=== PATIENT | male | born 1955 | race Caucasian/White ===

== ENCOUNTER 2017-01-11 12:26 | Emergency (ER) | payer BC ==
--- NOTE | 2017-01-11 14:02 | ER Document Report ---
Doctor's Note Notes: 01/11/17 14:01 I have greeted and performed a rapid initial assessment of this patient. A comprehensive ED assessment and evaluation of the patient, analysis of test results and completion of the medical decision making process will be conducted by additional ED providers. 61-year-old male presents with two-week duration of left-sided deficits. Patient admits nausea dizziness lightheadedness. Patient notes his gait has been off balance. Patient denies being on any blood thinners denies a history of strokes Patient has a history of high blood pressure but states he forgets to take his medications often Neurological exam: Left facial deficit left upper and lower extremity deficit difficulty with gait dragging left foot
[2017-01-11 14:10] LABS: ABSOLUTE LYMPHOCYTES (AUTO) 2.2 10^3/uL (0.5-4.7); ABSOLUTE MONOCYTES (AUTO) 0.8 10^3/uL (0.1-1.4); ABSOLUTE NEUT (AUTO) 6.2 10^3/uL (1.7-8.2); BASOPHILS % (AUTO) 0.4 % (0-2); EOSINOPHILS % (AUTO) 0.2 % (0-6); HEMATOCRIT 48.8 % (37.9-51.0); HEMOGLOBIN 16.5 g/dL (13.5-17.0); HGB HCT DIFFERENCE 0.7; MEAN CORPUSCULAR HEMOGLOBIN 31.5 pg (27.0-33.4); MEAN CORPUSCULAR HGB CONC 33.7 g/dL (32.0-36.0); MEAN CORPUSCULAR VOLUME 94 fl (80-97); MONOCYTES % (AUTO) 8.5 % (3-13); RED BLOOD COUNT 5.22 10^6/uL (4.35-5.55); RED CELL DISTRIBUTION WIDTH 13.7 % (11.5-14.0); SEGMENTED NEUTROPHILS % (AUTO) 66.9 % (42-78); WHITE BLOOD COUNT 9.3 10^3/uL (4.0-10.5)
[2017-01-11 14:35] LABS: ALANINE AMINOTRANSFERASE 35 U/L (21-72); ALBUMIN 4.3 g/dL (3.5-5.0); ALKALINE PHOSPHATASE 53 U/L (38-126); ANION GAP 14 (5-19); ASPARTATE AMINO TRANSFERASE 20 U/L (17-59); BILIRUBIN,DIRECT 0.2 mg/dL (0.0-0.4); BILIRUBIN,TOTAL 0.7 mg/dL (0.2-1.3); BLOOD UREA NITROGEN 17 mg/dL (7-20); CARBON DIOXIDE 28 mmol/L (22-30); CHLORIDE 105 mmol/L (98-107); CREATINE KINASE 75 U/L (55-170); CREATININE RESULT 0.92 mg/dL (0.52-1.25); GLUCOSE 96 mg/dL (75-110); SODIUM 146.5 mmol/L (137-145); TOTAL PROTEIN 6.8 g/dL (6.3-8.2)
[2017-01-11 14:38] LABS: POTASSIUM 4.6 mmol/L (3.6-5.0)
[2017-01-11 14:49] LABS: CREATINE KINASE MB 1.66 ng/mL (<4.55)
[2017-01-11 14:51] LABS: TROPONIN I < 0.012 ng/mL
--- NOTE | 2017-01-11 15:06 | ER Document Report ---
ED General - General Chief Complaint: Nausea Stated Complaint: NAUSEA Mode of Arrival: Ambulatory Information source: Patient Notes: This is a 61-year-old male with a prior medical history of high blood pressure who presents with a several week history of progressive left-sided weakness, dizziness, left facial droop, and imbalance. states that he was seen last month for sciatica and treated with pain medications and muscle relaxers and she states that since starting on these medications, the symptoms have progressed. Patient denies any pain and specifically denies headaches. He has had no fevers or chills. He does endorse daily worsening nausea but no vomiting. No changes in his vision. He does not have a primary care physician and has been noncompliant with his lisinopril. TRAVEL OUTSIDE OF THE [place] IN LAST 30 DAYS: No - Related Data Allergies/Adverse Reactions: Penicillins Allergy (Verified 01/11/17 12:28) Past Medical History - General Information source: Patient - Social History Smoking Status: Current Every Day Smoker Frequency of alcohol use: None Drug Abuse: None Lives with: Family Family History: Reviewed & Not Pertinent Patient has suicidal ideation: No Patient has homicidal ideation: No - Past Medical History Cardiac Medical History: Reports: Hx Hypertension Renal/ Medical History: Denies: Hx Peritoneal Dialysis GI Medical History: Reports: Hx Gastroesophageal Reflux Disease Past Surgical History: Reports: Hx Herniorrhaphy - Immunizations Hx Diphtheria, Pertussis, Tetanus Vaccination: Yes Review of Systems - Review of Systems Notes: REVIEW OF SYSTEMS: CONSTITUTIONAL : Denies fever, chills, or sweats. Denies recent illness. EENT: Denies eye, ear, throat, or mouth pain or symptoms. Denies nasal or sinus congestion. CARDIOVASCULAR: Denies chest pain. RESPIRATORY: Denies cough, cold, or chest congestion. Denies shortness of breath, difficulty breathing, or wheezing. GASTROINTESTINAL: Denies abdominal pain. Nausea as per history of present illness GENITOURINARY: Denies difficulty urinating, painful urination, burning, frequency, or blood in urine. MUSCULOSKELETAL: Denies neck or back pain or joint pain or swelling. SKIN: Denies rash or skin lesions. HEMATOLOGIC : Denies easy bruising or bleeding. LYMPHATIC: Denies swollen, enlarged glands. NEUROLOGICAL: As per history of present illness PSYCHIATRIC: Denies anxiety or stress or depression. ALL OTHER SYSTEMS REVIEWED AND NEGATIVE. Physical Exam - Vital signs Vitals: Temp Pulse Resp BP Pulse Ox 97.5 F 87 18 145/86 H 97 01/11/17 12:30 01/11/17 12:30 01/11/17 12:30 01/11/17 12:30 01/11/17 12:30 - Notes Notes: PHYSICAL EXAMINATION: GENERAL: Pleasant and conversant adult male, appears older than stated age,, thin and in no acute distress. HEAD: Atraumatic, normocephalic. EYES: Pupils equal round and reactive to light, extraocular movements intact, sclera anicteric, conjunctiva are normal. ENT: nares patent, oropharynx clear without exudates. Moist mucous membranes. NECK: Normal range of motion, supple without lymphadenopathy LUNGS: Breath sounds clear to auscultation bilaterally and equal. No wheezes rales or rhonchi. HEART: Regular rate and rhythm without murmurs ABDOMEN: Soft, nontender, normoactive bowel sounds. No guarding, no rebound. No masses appreciated. EXTREMITIES: Normal range of motion, no pitting or edema. No cyanosis. NEUROLOGICAL: Left sided facial droop which is forehead sparing. Motor weakness noted on left upper extremity specifically with forearm extension. Strength is intact to left lower extremity. Pronator drift noted to the left. Finger to nose intact. Gait observed and patient noted to drag his left foot somewhat. PSYCH: Normal mood, normal affect. SKIN: Warm, Dry, normal turgor, no rashes or lesions noted. Course - Re-evaluation Re-evalutation: 01/11/17 18:01 CT reviewed with the large right-sided cerebral mass with mass effect and 6 mm of midline shift. Patient has been given IV Decadron. Patient requires transfer to a higher level of care as we do not have neurology or neurosurgery here. I discussed the case with hospitalist at [facility] who accepts transfer at this time. Long discussion with patient and his family about the CT results and my concern that this mass may be cancerous in nature. They are agreeable with transfer for further workup and treatment. - Vital Signs Vital signs: Temp Pulse Resp BP Pulse Ox 97.5 F 76 16 142/74 H 98 01/11/17 12:30 01/11/17 17:00 01/11/17 17:00 01/11/17 17:00 01/11/17 17:00 - Laboratory Result Diagrams: 01/11/17 13:43 01/11/17 13:43 Laboratory results interpreted by me: 01/11/17 01/11/17 13:43 13:43 Plt Count 142 L Sodium 146.5 H - Diagnostic Test Radiology reviewed: Reports reviewed - Noncon head CT: large heterogenous mass R cerebral hemisphere with mass effect. Rec CT with contrast and followup MRI - EKG Interpretation by Me Additional EKG results interpreted by me: 01/11/17 15:16 EKG at 1355 demonstrates normal sinus rhythm with a rate is 74. QRS is 124. No ST segment elevation or depression. Discharge - Discharge Clinical Impression: Brain mass, Left hemiparesis, Midline shift of brain Condition: Stable Disposition: [facility]
[2017-01-11 17:31] VITALS: BP 142/74
[2017-01-11] MEDS ORDERED: DEXAMETHASONE SOD PHOS INJ 10 MG/1 ML VIAL IV ONE (17:45)
[2017-01-11 18:49] LABS: APPEARANCE,URINE CLEAR; BILIRUBIN,URINE NEGATIVE (NEGATIVE); GLUCOSE, URINE NEGATIVE (NEGATIVE); KETONES,URINE NEGATIVE (NEGATIVE); LEUKOCYTE ESTERASE,URINE NEGATIVE (NEGATIVE); NITRITE,URINE NEGATIVE (NEGATIVE); PROTEIN,URINE NEGATIVE (NEGATIVE); UROBILINOGEN,URINE NEGATIVE mg/dL (<2.0)
[2017-01-11 18:54] LABS: URINE SPECIFIC GRAVITY > 1.060
--- NOTE | 2017-01-12 00:08 | EKG REPORT ---
SEVERITY:- ABNORMAL ECG - SINUS RHYTHM NONSPECIFIC INTRAVENTRICULAR CONDUCTION DELAY INFERIOR INFARCT, OLD : Confirmed by: Letty Saladna 12-Jan-2017 00:08:20
== END 2017-01-11 19:05 | disposition short-term general hospital (02) ==
LOC: ER 12:26
DX: G93.9 Disorder of brain, unspecified (principal); G81.94 Hemiplegia, unspecified affecting left nondominant side; R53.1 Weakness; R42 Dizziness and giddiness; R26.89 Other abnormalities of gait and mobility; R11.0 Nausea; F17.200 Nicotine dependence, unspecified, uncomplicated; I10 Essential (primary) hypertension; Z91.14 Patient's other noncompliance with medication regimen
CPT/HCPCS: 93005; 99285; 96374; 36415; 82553; 82550; 85025; 80053; 81001; 84484; 70450; 70460; 93010; J1100

== ENCOUNTER → 2017-01-30 | Outpatient (CLI) | payer BC | LOC: RAD 19:39 | PROVIDERS: ATTEND Radiology Radiation Oncology | DX: C71.1 Malignant neoplasm of frontal lobe (principal) | CPT/HCPCS: 70553; A9577 ==

== ENCOUNTER → 2017-05-05 | Outpatient (CLI) | payer BC ==
--- NOTE | 2017-05-05 16:59 | RADIOLOGY REPORT (SQ) ---
EXAM DESCRIPTION: VENOUS UNILATERAL LOWER COMPLETED DATE/TIME: 05/05/2017 4:39 pm REASON FOR STUDY: LLE R60.9 M79.662 PAIN IN LEFT LOWER LEG M79.89 OTHER SPECIFIED SOFT TISSUE DISO RDERS COMPARISON: None. TECHNIQUE: Dynamic and static vegas scale and color images acquired of the left leg venous system. Se lected spectral images acquired with additional compression and augmentation maneuvers. The contralat eral common femoral vein and saphenofemoral junction were also imaged. Images stored on PACS. LIMITATIONS: None. FINDINGS: COMMON FEMORAL: Normal phasicity, compression and augmentation. No visualized echogenic ma terial on vegas scale. No defects on color images. FEMORAL: Normal compression and augmentation. No visualized echogenic material on vegas scale. No defe cts on color images. POPLITEAL: Thrombus present. CALF VESSELS: Thrombus in the peroneal veins and gastrocnemius vein. GSV and SSV: Normal compression, augmentation. No visualized echogenic material on vegas scale. No def ects on color images. ANY DEEP VENOUS INSUFFICIENCY: Not evaluated. ANY EVIDENCE OF POPLITEAL CYST: No. OTHER: No other significant finding. CONTRALATERAL COMMON FEMORAL VEIN AND SAPHENOFEMORAL JUNCTION: Normal phasicity, compression and augmentation. No visualized echogenic material on vegas scale. No de fects on color images. IMPRESSION: THROMBUS IN THE POPLITEAL VEIN AND CALF VEINS. COMMENT: Preliminary report was called by the technologist to the referring clinician's office at t he time of patient visit. TECHNICAL DOCUMENTATION: JOB ID: [id number] [employer]- All Rights Reserved
== END ==
LOC: SP 15:39
PROVIDERS: ATTEND Internal Medicine Medical Oncology
DX: M79.662 Pain in left lower leg (principal); M79.89 Other specified soft tissue disorders; I82.432 Acute embolism and thrombosis of left popliteal vein
CPT/HCPCS: 93971

== ENCOUNTER 2017-05-27 03:04 | Inpatient (IN) | payer BC ==
[2017-05-27] MEDS ORDERED: NORMAL SALINE 1000 ML 1,000 ML IV ONE ×4 (03:48→08:06)
[2017-05-27 04:05] LABS: APPEARANCE,URINE CLOUDY; BILIRUBIN,URINE NEGATIVE (NEGATIVE); GLUCOSE, URINE NEGATIVE (NEGATIVE); KETONES,URINE NEGATIVE (NEGATIVE); LEUKOCYTE ESTERASE,URINE MODERATE (NEGATIVE); NITRITE,URINE NEGATIVE (NEGATIVE); PROTEIN,URINE 100 mg/dL (NEGATIVE); URINE SPECIFIC GRAVITY 1.021
--- NOTE | 2017-05-27 04:19 | RADIOLOGY REPORT (SQ) ---
EXAM DESCRIPTION: CHEST SINGLE VIEW COMPLETED DATE/TIME: 05/27/2017 4:05 am REASON FOR STUDY: difficulty breathing COMPARISON: 12/19/2015. EXAM PARAMETERS: NUMBER OF VIEWS: One view. TECHNIQUE: Single frontal radiographic view of the chest acquired. RADIATION DOSE: NA LIMITATIONS: None. FINDINGS: LUNGS AND PLEURA: Prominent interstitium, chronic. MEDIASTINUM AND HILAR STRUCTURES: No masses. Contour normal. HEART AND VASCULAR STRUCTURES: Heart normal in size. Normal vasculature. BONES: No acute findings. HARDWARE: None in the chest. OTHER: No other significant finding. IMPRESSION: No acute cardiopulmonary findings. TECHNICAL DOCUMENTATION: JOB ID: [id number]
[2017-05-27 04:41] LABS: HEMATOCRIT 45.6 % (37.9-51.0); HEMOGLOBIN 15.4 g/dL (13.5-17.0); HGB HCT DIFFERENCE 0.6; MEAN CORPUSCULAR HEMOGLOBIN 34.6 pg (27.0-33.4); MEAN CORPUSCULAR HGB CONC 33.8 g/dL (32.0-36.0); MEAN CORPUSCULAR VOLUME 102 fl (80-97); RED BLOOD COUNT 4.46 10^6/uL (4.35-5.55); RED CELL DISTRIBUTION WIDTH 16.5 % (11.5-14.0); WHITE BLOOD COUNT 8.1 10^3/uL (4.0-10.5)
[2017-05-27 04:51] LABS: PARTIAL THROMBOPLASTIN TIME 30.9 SEC (23.5-35.8); PROTHROMBIN TIME 13.2 SEC (11.4-15.4)
[2017-05-27 05:15] LABS: VENOUS BLOOD BASE EXCESS 1.5 mmol/L; VENOUS BLOOD HCO3 27.4 mmol/L (20-32); VENOUS BLOOD PCO2 48.2 mmHg (35-63); VENOUS BLOOD PH 7.37 (7.30-7.42)
[2017-05-27 05:25] LABS: ANISOCYTOSIS SLIGHT; BAND NEUTROPHILS % (MANUAL) 9 % (3-5); BASOPHILS % (MANUAL) 0 % (0-2); EOSINOPHILS % (MANUAL) 0 % (0-6); LYMPHOCYTES % (MANUAL) 12 % (13-45); POIKILOCYTOSIS SLIGHT; POLYCHROMASIA SLIGHT; TOTAL CELLS COUNTED 100; TOXIC GRANULATION SLIGHT; TOXIC VACUOLATION PRESENT
[2017-05-27 05:26] LABS: STOMATOCYTES SLIGHT
[2017-05-27] MEDS ORDERED: CEFTRIAXONE 1 GM/D5W RTU 50 ML IV ONE (05:31)
[2017-05-27 05:32] LABS: ALANINE AMINOTRANSFERASE 198 U/L (21-72); ALBUMIN 2.7 g/dL (3.5-5.0); ALKALINE PHOSPHATASE 52 U/L (38-126); ANION GAP 7 (5-19); ASPARTATE AMINO TRANSFERASE 83 U/L (17-59); BILIRUBIN,DIRECT 0.7 mg/dL (0.0-0.4); BILIRUBIN,TOTAL 1.7 mg/dL (0.2-1.3); BLOOD UREA NITROGEN 21 mg/dL (7-20); CALCIUM 8.3 mg/dL (8.4-10.2); CARBON DIOXIDE 28 mmol/L (22-30); CHLORIDE 102 mmol/L (98-107); CREATININE RESULT 0.64 mg/dL (0.52-1.25); GLUCOSE 72 mg/dL (75-110); POTASSIUM 4.1 mmol/L (3.6-5.0); TOTAL PROTEIN 4.9 g/dL (6.3-8.2)
--- NOTE | 2017-05-27 06:30 | ER Document Report ---
ED General - General Chief Complaint: Shortness Of Breath Stated Complaint: SHORT OF BREATH Time Seen by Provider: 05/27/17 03:48 TRAVEL OUTSIDE OF THE [place] 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 Patient states workup right-sided chest pain acute shortness of breath currently now is resolved. Patient states shortness of breath lasted for approximately 1 hour. Patient denies any recent travel. Patient denies any fevers chills states burning and frequent urination. Patient denies any recent antibiotics. Patient currently is on chemotherapy - Related Data Allergies/Adverse Reactions: Penicillins Allergy (Verified 01/11/17 12:28) Past Medical History - Social History Smoking Status: Unknown if Ever Smoked Family History: Reviewed & Not Pertinent - Past Medical History Cardiac Medical History: Reports: Hx Hypertension Renal/ Medical History: Denies: Hx Peritoneal Dialysis GI Medical History: Reports: Hx Gastroesophageal Reflux Disease Past Surgical History: Reports: Hx Herniorrhaphy - Immunizations Hx Diphtheria, Pertussis, Tetanus Vaccination: Yes Review of Systems - Review of Systems Constitutional: No symptoms reported EENT: No symptoms reported Cardiovascular: No symptoms reported Respiratory: Short of breath Gastrointestinal: No symptoms reported Genitourinary: Burning, Frequency Male Genitourinary: No symptoms reported Musculoskeletal: No symptoms reported Skin: No symptoms reported Hematologic/Lymphatic: No symptoms reported Neurological/Psychological: No symptoms reported -: Yes All other systems reviewed and negative Physical Exam - Vital signs Vitals: Pulse Ox 98 05/27/17 04:01 Interpretation: Tachycardic - General General appearance: Appears well, Alert - HEENT Head: Normocephalic, Atraumatic Eyes: Normal Pupils: PERRL - Respiratory Respiratory status: No respiratory distress Chest status: Nontender Breath sounds: Rhonchi Chest palpation: Normal - Cardiovascular Rhythm: Regular Heart sounds: Normal auscultation Murmur: No - Abdominal Inspection: Normal Distension: No distension Bowel sounds: Normal Tenderness: Nontender Organomegaly: No organomegaly - Back Back: Normal, Nontender - Extremities General upper extremity: Normal inspection, Nontender, Normal color, Normal ROM , Normal temperature General lower extremity: Normal inspection, Nontender, Normal color, Normal ROM , Normal temperature, Normal weight bearing. No: Robert's sign - Neurological Neuro grossly intact: Yes Cognition: Normal Orientation: AAOx4 [place] Coma Scale Eye Opening: Spontaneous [place] Coma Scale Verbal: Oriented [place] Coma Scale Motor: Obeys Commands Ch[place]idy Coma Scale Total: 15 Speech: Normal Motor strength normal: LUE, RUE, LLE, RLE Sensory: Normal - Psychological Associated symptoms: Normal affect, Normal mood - Skin Skin Temperature: Warm Skin Moisture: Dry Skin Color: Normal Course - Re-evaluation Re-evalutation: 05/27/17 06:29 Lab work shows UTI possible early sepsis with bandemia and elevated lactic acid. Patient was given IV fluids. Started on antibiotics currently waiting CTA results. 05/27/17 07:[address] findings with family at bedside. Patient will be admitted to the hospitalist service. - Vital Signs Vital signs: Temp Pulse Resp BP Pulse Ox 117 H 20 100/70 98 05/27/17 04:57 05/27/17 04:57 05/27/17 04:57 05/27/17 04:57 - Laboratory Result Diagrams: 05/27/17 04:04 05/27/17 04:50 Laboratory results interpreted by me: 05/27/17 05/27/17 05/27/17 03:40 04:04 04:04 MCV 102 H MCH 34.6 H RDW 16.5 H Plt Count 140 L Band Neutrophils % 9 H Lymphocytes % (Manual) 12 L Monocytes % (Manual) 1 L BUN Glucose Lactic Acid 2.4 H Calcium Total Bilirubin Direct Bilirubin AST ALT Total Protein Albumin Urine Protein 100 H Urine Urobilinogen 4.0 H Ur Leukocyte Esterase MODERATE H 05/27/17 04:50 MCV MCH RDW Plt Count Band Neutrophils % Lymphocytes % (Manual) Monocytes % (Manual) BUN 21 H Glucose 72 L Lactic Acid Calcium 8.3 L Total Bilirubin 1.7 H Direct Bilirubin 0.7 H AST 83 H ALT 198 H Total Protein 4.9 L Albumin 2.7 L Urine Protein Urine Urobilinogen Ur Leukocyte Esterase Critical Care Note - Critical Care Note Total time excluding time spent on procedures (mins): 35 Comments: Multiple evaluations for sepsis Discharge - Discharge Clinical Impression: Dyspnea, UTI (urinary tract infection), Brain cancer, Sepsis Condition: Good Disposition: ADMITTED INPATIENT Admitting Provider: Hospitalist [facility] Unit Admitted: [facility]
--- NOTE | 2017-05-27 06:36 | RADIOLOGY REPORT (SQ) ---
EXAM DESCRIPTION: CTA CHEST COMPLETED DATE/TIME: 05/27/2017 6:06 am REASON FOR STUDY: hx of dvt acute r side cp with sob COMPARISON: CR, same day. TECHNIQUE: CT scan of the chest performed using helical scanning technique with dynamic intravenous contrast injection. Images reviewed with lung, soft tissue and bone windows. Reconstructed coronal and sagittal MPR images reviewed. Additional 3 dimensional post-processing performed to develop Maximal Intensity Projection images (UT P). All images stored on PACS. All CT scanners at this facility use dose modulation, iterative reconstruction, and/or weight based d osing when appropriate to reduce radiation dose to as low as reasonably achievable (ALARA). [facility]: Dose Right [facility]: CareDose [facility]: Dose Right [facility]: Teradose 4D [facility]: [employer] CONTRAST TYPE AND DOSE: contrast/concentration: Isovue 370.00 mg/ml; Total Contrast Delivered: 100.0 ml; Total Saline Delivered: 40.0 ml RENAL FUNCTION: Creatinine 0.6 RADIATION DOSE: Up-to-date CT equipment and radiation dose reduction techniques were employed. CTDIv ol: 14.3 mGy. DLP: 434 mGy-cm. . LIMITATIONS: None. FINDINGS: LUNGS AND PLEURA: Right lower lobar pulmonary nodules measure 1.2 cm in 1.1 cm, image 60- 61, series 4 ; and 0.7 cm pleural-based pulmonary nodule of the right lower lobe, image 67 of series 5. Mild diffuse reticular nodularity. AORTA AND GREAT VESSELS: Moderate, bilateral subpleural cysts medially. HEART: No pericardial effusion. PULMONARY ARTERIES: No emboli visualized in the main pulmonary arteries or the segmental branches. HILAR AND MEDIASTINAL STRUCTURES: No identified masses or abnormal nodes. HARDWARE: None in the chest. UPPER ABDOMEN: Likely 2.7 cm gastric diverticulum. Limited exam. THYROID AND OTHER SOFT TISSUES: 0.6 cm calcified nodular lesion of the right thyroid lobe. 0.3 cm ca lcification of the left thyroid lobe. BONES: Intravertebral hemangioma of the upper thoracic spine partially imaged. 3D MIPS: Confirm above findings. OTHER: No other significant finding. IMPRESSION: 1. Three right lower lobar pulmonary nodules measure up to 1.2 cm each. Infectious, in flammatory, and neoplastic processes are in the differential diagnosis. CT surveillance recommended in 3 months or sooner, as clinically warranted. NO PULMONARY EMBOLI. 2. Indeterminate subcentimete r calcified lesions of the thyroid gland; correlation with thyroid sonogram recommended. 3. A 2.7 c m gastric diverticulum. COMMENT: F[place]ISCHNER CRITERIA FOR FOLLOW-UP OF PULMONARY NODULES Incidentally detected new nodules in persons 35 or older. HIGH RISK: History of smoking or other known risk factors. >8mm multiple solid nodules: LOW RISK: CT 3-6 mo; then consider CT 18-24 mo. HIGH RISK: CT 3-6 mo; th en CT 18-24 mo. TECHNICAL DOCUMENTATION: JOB ID: [id number] Quality ID # [id number]: Final reports with documentation of one or more dose reduction techniques (e.g., Au tomated exposure control, adjustment of the mA and/or kV according to patient size, use of iterative reconstruction technique) 2010 [employer]- All Rights Reserved
[2017-05-27] MEDS ORDERED: DEXAMETHASONE 4 MG TABLET PO ONE (07:00)
[2017-05-27] MEDS ORDERED: LEVETIRACETAM 500 MG TABLET PO ONE (07:00)
[2017-05-27] MEDS ORDERED: ENOXAPARIN SODIUM INJ 60 MG/0.6 ML DISP.SYRIN SUBCUT SCH (07:15)
[2017-05-27] MEDS ORDERED: CEFEPIME 1 GM/D5W RTU 50 ML IV ONE (07:18)
[2017-05-27] MEDS ORDERED: VANCOMYCIN HCL INJ 1000 MG VIAL IV ONE (07:19)
[2017-05-27] MEDS ORDERED: LEVALBUTEROL HCL NEB 1.25 MG/3 ML AMPUL NEB PRN (07:19)
[2017-05-27] MEDS ORDERED: ACETAMINOPHEN 325 MG TABLET PO PRN (07:19)
[2017-05-27] MEDS ORDERED: GUAIFENESIN SYRP 200 MG/10 ML UDC PO PRN (07:19)
--- NOTE | 2017-05-27 07:47 | EKG REPORT ---
SEVERITY:- ABNORMAL ECG - SINUS TACHYCARDIA RBBB AND LPFB : Confirmed by: Emmanuel Garcia MD 27-May-2017 07:46:53
[2017-05-27] MEDS ORDERED: FLUCONAZOLE 400 MG/NS RTU 200 ML IV ONE (08:05)
[2017-05-27] MEDS ORDERED: DEXTROSE 40% GEL 15 GM TUBE PO PRN ×2 (08:05)
[2017-05-27] MEDS ORDERED: DEXTROSE 50%-WATER 25 GM/50 ML DISP.SYRIN IV PRN ×2 (08:05)
[2017-05-27] MEDS ORDERED: GLUCAGON,HUMAN RECOMB 1 MG INJ IM PRN (08:05)
[2017-05-27] MEDS ORDERED: VANCOMYCIN HCL 0 MG in DEXTROSE 5%-WATER 250 ML IV NR (08:15)
[2017-05-27] MEDS ORDERED: OXYCODONE HCL IR 5 MG TABLET PO PRN (08:37)
[2017-05-27] MEDS ORDERED: ONDANSETRON HCL 8 MG TABLET PO PRN (08:37)
[2017-05-27] MEDS: IPRATROPIUM/ALBUTEROL 0.5-2.5 MG/3 ML AMPUL NEB SCH ×3 (08:50→19:46)
[2017-05-27] MEDS ORDERED: ENOXAPARIN SODIUM INJ 60 MG/0.6 ML DISP.SYRIN SUBCUT ONE (09:00)
--- NOTE | 2017-05-27 09:00 | PDOC H&P ---
History of Present Illness Admission Date/PCP: 05/27/17 07:[address] Akshat Patel History of Present Illness: CHERRIE MERRILL is a 61 year old male who is currently undergoing treatment for glioblastoma multiforme grade IV who recently started a new chemotherapeutic agent of temozolmide who presents to the ER with dyspnea. Patient got up to the bathroom and returned to the bed with shortness of breath and tachypnea. Patient has also been having dyuria, frequency, incontinence, and urge. Patient also complains of thrush. Patient denies cough, hemoptysis, and URI symptoms. Patient found to have tachycardia, bandemia, tachypnea, and overt uti in ER meeting sepsis criteria. Referred to hospitalist service. Past Medical History Cardiac Medical History: Reports: DVT, Hyperlipidema, Hypertension Malignancy Medical History: Reports: Brain Cancer GI Medical History: Reports: Gastroesophageal Reflux Disease Past Surgical History Past Surgical History: Reports: Herniorrhaphy, Other - craniotomy Social History Smoking Status: Former Smoker Frequency of Alcohol Use: None Hx Recreational Drug Use: No Hx Prescription Drug Abuse: No - Advance Directive Resuscitation Status: Do Not Resuscitate Surrogate healthcare decision maker:: Leah Merrill, Family History Family History: Malignancy Parental Family History Reviewed: Yes Children Family History Reviewed: Yes Sibling(s) Family History Reviewed.: Yes Medication/Allergy Home Medications: Acetaminophen [Tylenol Extra Strength 500 mg Tablet] 1,000 mg PO Q8 PRN Dexamethasone [Decadron 4 Mg Tablet] 4 mg PO QID 05/27/17 Enoxaparin Sodium [Lovenox Inj 60 Mg/0.6 Ml Disp.Syrin] 60 mg SUBCUT Q12@0700, 1900 05/27/17 Levetiracetam [Keppra 500 mg Tablet] 500 mg PO Q12 05/27/17 Lisinopril [Prinivil 5 mg Tablet] 5 mg PO QHS 05/27/17 Omeprazole 40 mg PO DAILY 05/27/17 Ondansetron HCl [Zofran 8 mg Tablet] 8 mg PO Q8HP PRN 05/27/17 Oxycodone HCl [Oxy-Ir 5 mg Tablet] 10 mg PO Q4HP PRN 05/27/17 Rosuvastatin Calcium [Crestor] 40 mg PO QHS 05/27/17 Temozolomide [Temodar] 100 mg PO DAILY 05/27/17 Temozolomide [Temodar] 250 mg PO DAILY 05/27/17 Allergies/Adverse Reactions: Penicillins Allergy (Verified 01/11/17 12:28) Review of Systems Constitutional: PRESENT: chills, fever(s). ABSENT: headache(s), weight gain, weight loss Eyes: ABSENT: visual disturbances Ears: ABSENT: hearing changes Nose, Mouth, and Throat: PRESENT: mouth pain Cardiovascular: PRESENT: dyspnea on exertion. ABSENT: chest pain, edema, orthropnea, palpitations Respiratory: PRESENT: dyspnea. ABSENT: cough, hemoptysis, sputum Gastrointestinal: PRESENT: diarrhea, heartburn, nausea, vomiting. ABSENT: abdominal pain, constipation, hematemesis, hematochezia, melena Genitourinary: PRESENT: dysuria, nocturia. ABSENT: hematuria Musculoskeletal: ABSENT: joint swelling Integumentary: ABSENT: rash, wounds Neurological: PRESENT: abnormal gait - chronic walks with walker, weakness - walks with walker, other - medial deviation of eyes, left facial droop chronic. ABSENT: abnormal speech, confusion, dizziness, focal weakness, syncope Psychiatric: ABSENT: anxiety, depression, homidical ideation, suicidal ideation Endocrine: ABSENT: cold intolerance, heat intolerance, polydipsia, polyuria Hematologic/Lymphatic: PRESENT: easy bleeding, easy bruising Physical Exam Vital Signs: Temp Pulse Resp BP Pulse Ox 117 H 20 100/70 98 05/27/17 04:57 05/27/17 04:57 05/27/17 04:57 05/27/17 04:57 General appearance: PRESENT: mild distress, well-developed, well-nourished Head exam: PRESENT: other - prior craniotomy scar Eye exam: PRESENT: conjunctiva pink, PERRLA. ABSENT: conjunctival injection, EOMI - medial deviation of eyes, scleral icterus Ear exam: PRESENT: normal external ear exam Mouth exam: PRESENT: dry mucosa, tongue midline, other - thrush Neck exam: ABSENT: carotid bruit, JVD, lymphadenopathy, thyromegaly, tracheal deviation Respiratory exam: PRESENT: clear to auscultation leo, prolonged expiratory phas , symmetrical. ABSENT: accessory muscle use, crackles, rales, rhonchi, wheezes Cardiovascular exam: PRESENT: RRR, +S1, +S2, tachycardia. ABSENT: diastolic murmur, gallop, rubs, systolic murmur Pulses: PRESENT: normal dorsalis pedis pul Vascular exam: PRESENT: normal capillary refill GI/Abdominal exam: PRESENT: normal bowel sounds, soft. ABSENT: diminished bowel sounds, distended, firm, guarding, mass, organolmegaly, rebound, rigid, tenderness Rectal exam: PRESENT: deferred Gentrourinary exam: PRESENT: erythema, urethral discharge, other - yeast on glans Extremities exam: PRESENT: full ROM. ABSENT: calf tenderness, clubbing, pedal edema Neurological exam: PRESENT: alert, awake, oriented to person, oriented to place , oriented to time, oriented to situation, abnormal gait. ABSENT: CN II-XII grossly intact - left facial droop, motor sensory deficit Psychiatric exam: PRESENT: appropriate affect, normal mood. ABSENT: homicidal ideation, suicidal ideation Skin exam: PRESENT: dry, intact, pallor, warm. ABSENT: cyanosis, rash Results Laboratory Results: 05/27/17 05/27/17 05/27/17 03:40 04:04 04:04 WBC 8.1 Hgb 15.4 Hct 45.6 MCV 102 H Plt Count 140 L INR 0.94 VBG pH VBG pCO2 VBG HCO3 Sodium Potassium Chloride Carbon Dioxide Anion Gap Glucose Lactic Acid Calcium Total Bilirubin Direct Bilirubin Neonat Total Bilirubin ALT Troponin I Total Protein Albumin Urine Appearance CLOUDY Urine pH 7.0 Ur Specific [place] 1.021 Urine Protein 100 H Urine Urobilinogen 4.0 H Ur Leukocyte Esterase MODERATE H Urine WBC (Auto) >182 Urine RBC (Auto) 10 Urine Bacteria (Auto) 1+ Urine WBC Clumps FEW Squamous Epi Cells Auto 1 Urine Mucus (Auto) OCC Urine Ascorbic Acid NEGATIVE 05/27/17 05/27/17 05/27/17 04:04 04:50 04:50 WBC Hgb Hct MCV Plt Count INR VBG pH 7.37 VBG pCO2 48.2 VBG HCO3 27.4 Sodium 137.0 Potassium 4.1 Chloride 102 Carbon Dioxide 28 Anion Gap 7 Glucose 72 L Lactic Acid 2.4 H Calcium 8.3 L Total Bilirubin 1.7 H Direct Bilirubin 0.7 H Neonat Total Bilirubin Not Reportable ALT 198 H Troponin I Total Protein 4.9 L Albumin 2.7 L Urine Appearance Urine pH Ur Specific [place]ida Urine Protein Urine Urobilinogen Ur Leukocyte Esterase Urine WBC (Auto) Urine RBC (Auto) Urine Bacteria (Auto) Urine WBC Clumps Squamous Epi Cells Auto Urine Mucus (Auto) Urine Ascorbic Acid 05/27/17 04:50 WBC Hgb Hct MCV Plt Count INR VBG pH VBG pCO2 VBG HCO3 Sodium Potassium Chloride Carbon Dioxide Anion Gap Glucose Lactic Acid Calcium Total Bilirubin Direct Bilirubin Neonat Total Bilirubin ALT Troponin I 0.077 Total Protein Albumin Urine Appearance Urine pH Ur Specific [place] Urine Protein Urine Urobilinogen Ur Leukocyte Esterase Urine WBC (Auto) Urine RBC (Auto) Urine Bacteria (Auto) Urine WBC Clumps Squamous Epi Cells Auto Urine Mucus (Auto) Urine Ascorbic Acid Impressions: Chest X-Ray 05/27/17 03:06 IMPRESSION: No acute cardiopulmonary findings. Chest/Abdomen CTA 05/27/17 03:48 IMPRESSION: 1. Three right lower lobar pulmonary nodules measure up to 1.2 cm each. Infectious, inflammatory, and neoplastic processes are in the differential diagnosis. CT surveillance recommended in 3 months or sooner, as clinically warranted. NO PULMONARY EMBOLI. 2. Indeterminate subcentimeter calcified lesions of the thyroid gland; correlation with thyroid sonogram recommended. 3. A 2.7 cm gastric diverticulum. Status: Imported from PACS Assessment & Plan - Diagnosis (1) Sepsis Qualifiers: Sepsis type: sepsis due to unspecified organism Qualified Code(s): A41.9 - Sepsis, unspecified organism Is this a current diagnosis for this admission?: YesPlan: Likely 2/2 to UTI with chemotherapy and chronic dexamethasone use. Concern for underlying pneumonia in light of O2 requirement and CT findings. Cover for pna until patient is rehydrated. (2) UTI (urinary tract infection) Qualifiers: Urinary tract infection type: acute cystitis Hematuria presence: with hematuria Qualified Code(s): N30.01 - Acute cystitis with hematuria Is this a current diagnosis for this admission?: YesPlan: Place patient on levaquin, Cefepime, and vancomycin. Likely stop Vancomycin tomorrow. (3) Thrush, oral Is this a current diagnosis for this admission?: YesPlan: Place patient on oral nystatin and IV fluconazole (4) HTN (hypertension) Qualifiers: Hypertension type: essential hypertension Qualified Code(s): I10 - Essential (primary) hypertension Is this a current diagnosis for this admission?: YesPlan: Lisinopril QHS (5) Balantidiasis Is this a current diagnosis for this admission?: YesPlan: place on topical nystatin (6) DVT (deep venous thrombosis) Qualifiers: DVT location: lower extremity Affected thrombotic vein of extremity: unspecified vein of extremity Chronicity: chronic Laterality: unspecified laterality Qualified Code(s): I82.509 - 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 Continue dexamethasone taper. (8) Transaminitis Is this a current diagnosis for this admission?: YesPlan: Mild. Likely 2/2 chemotherapy and dehydration - Time Time Spent: 50 to 70 Minutes Medications reviewed and adjusted accordingly: Yes Anticipated discharge: Home with Homehealth Within: Other - upon improvement - Inpatient Certification Based on my medical assessment, after consideration of the patient's comorbidities, presenting symptoms, or acuity I expect that the services needed warrant INPATIENT care.: Yes I certify that my determination is in accordance with my understanding of Medicare's requirements for reasonable and necessary INPATIENT services [42 CFR 412.3e].: Yes Medical Necessity: Need For IV Fluids, Need for IV Antibiotics Post Hospital Care: 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
[2017-05-27] MEDS ORDERED: FAMOTIDINE 20 MG TABLET PO SCH (10:00)
[2017-05-27] MEDS ORDERED: CEFEPIME 2 GM/D5W RTU 50 ML IV SCH (10:00)
[2017-05-27] MEDS: GUAIFENESIN 600 MG TABLET.SA PO SCH ×2 (12:43→22:09)
[2017-05-27] MEDS: LEVETIRACETAM 500 MG TABLET PO SCH ×2 (12:43→22:09)
[2017-05-27] MEDS: LACTOBACILLUS ACIDOPHILUS 250 MG TAB PO SCH ×2 (12:44→18:00)
[2017-05-27] MEDS: DEXAMETHASONE 4 MG TABLET PO SCH ×2 (12:44→18:08)
[2017-05-27] MEDS: NYSTATIN/DEXAMETH/DIPHEN SUSP 120 ML PO SCH ×4 (12:45→22:08)
[2017-05-27] MEDS: LEVOFLOXACIN 750 MG/D5W RTU 150 ML IV SCH (13:56)
[2017-05-27] MEDS: NYSTATIN CREAM 15 GM TP SCH ×2 (14:11→18:05)
[2017-05-27] MEDS: CEFEPIME 2 GM/D5W RTU 2 GM/50 ML RTUPB IV SCH (14:51)
[2017-05-27] MEDS ORDERED: FLUCONAZOLE 400 MG/NS RTU 400 MG/200 ML RTUPB IV ONE (15:00)
[2017-05-27] MEDS: NORMAL SALINE 1000 ML 1,000 ML IV PRN (16:38)
[2017-05-27] MEDS: LANSOPRAZOLE 15 MG TAB.RAP.DR PO SCH (16:40)
--- NOTE | 2017-05-27 17:12 | CONSULTATION REPORT E ---
Consultation Report NAME: CHERRIE BIRD : 1955 AGE: 61Y DATE: 05/27/2017 ROOM: 313 A TO: PAULO SUMMERS M.D. FROM: MARIA ESTHER BISHOP M.D. Requesting Physician HISTORY OF PRESENT ILLNESS: The patient is a 61-year-old man who has glioblastoma multiforme. He underwent resection 01/14/2017. He received concomitant chemotherapy and radiation with Temodar 75 mg/sq. meter daily over 42 days. He completed radiation and was about to start on maintenance Temodar when he unfortunately developed symptoms suggestive of a stroke. He had follow-up MRI of his brain that had shown progression and he also had DVT in his lower extremities with pulmonary embolism. He was started on anticoagulation with Lovenox and a [place] filter was placed. He was seen at [place] [facility] and the plan was to continue as planned on the maintenance-phase Temodar. He completed an initial cycle about a month ago and was seen in the office yesterday and he appeared to be doing well and he was restarted on the second cycle of the 5-day Temodar. He took his dose yesterday and unfortunately presented to the emergency room with shortness of breath and tachypnea with symptoms of dysuria, frequency, incontinence. He presently is admitted, being treated for possible infection. I saw him at the bedside. He is a middle-aged man. He does have left hemiparesis that has improved significantly with his physical therapy. PHYSICAL EXAMINATION: VITAL SIGNS: His blood pressure is about 100/70, respiratory rate 20, pulse ox 98%, pulse 117. Good air entry bilaterally. ABDOMEN: Soft. EXTREMITIES: No edema. LABORATORY STUDIES: White count was 8.1, hemoglobin 15.4, platelet count 140. IMAGING: Chest x-ray May 27 showed no acute cardiopulmonary findings. CT chest done 05/27/2017: Right lower lobar pulmonary nodules 1.2, 1.1, 0.7, pleural based pulmonary nodules, right lower lobe. Mild diffuse reticular nodularities. No pulmonary emboli. CTA chest done 05/06/2017 had shown numerous acute pulmonary emboli in the right middle and bilateral lower lobe pulmonary arteries. IMPRESSION AND PLAN: The patient is a 61-year-old man with GBM diagnosed in January of 2017, completed concomitant chemoradiation using Temodar. Follow-up MRI showed progression. He developed symptoms suggestive of stroke; however, his MRI had shown progression of his GBM. He is on the monthly maintenance Temodar. He began his second cycle yesterday, 1 of 5 days. Given the fact that there might be ongoing infection, I have asked him to discontinue the Temodar for now. Once this infection clears then the Temodar can be restarted. The finding on the CTA chest is worrisome, hopefully just represents pneumonia. It is unlikely for his GBM to metastasize to the lung; however, metastases cannot be excluded. If he improves and is discharged a PET might shed a clearer light to the findings on the CTA chest. For now I have asked him to discontinue the Temodar. It will be restarted once the infection is treated and as an outpatient. I thank you for this consultation and allowing me to participate in his care. DICTATING PHYSICIAN: PAULO SUMMERS M.D. [id number] PHY#: [id number] ID: [id number] JOB#: [id number] ACCT: [id number] cc:PAULO SUMMERS M.D. >
[2017-05-27] MEDS ORDERED: ENOXAPARIN SODIUM 60 MG SUBCUT SCH (19:00)
[2017-05-27] MEDS: VANCOMYCIN HCL 1,000 MG in DEXTROSE 5%-WATER 250 ML IV SCH (20:09)
[2017-05-27] MEDS ORDERED: LISINOPRIL 5 MG TABLET PO SCH (22:00)
[2017-05-27] MEDS ORDERED: DEXAMETHASONE 0.5 MG TABLET PO SCH (22:00)
[2017-05-27] MEDS: ENOXAPARIN SODIUM INJ 60 MG/0.6 ML DISP.SYRIN SUBCUT SCH (22:10)
[2017-05-28] MEDS: CEFEPIME 2 GM/D5W RTU 2 GM/50 ML RTUPB IV SCH ×2 (01:58→18:23)
[2017-05-28] MEDS: LANSOPRAZOLE 15 MG TAB.RAP.DR PO SCH ×2 (06:06→16:16)
[2017-05-28 07:47] LABS: HEMATOCRIT 35.7 % (37.9-51.0); HGB HCT DIFFERENCE 1.2; MEAN CORPUSCULAR HEMOGLOBIN 35.1 pg (27.0-33.4); MEAN CORPUSCULAR HGB CONC 34.4 g/dL (32.0-36.0); MEAN CORPUSCULAR VOLUME 102 fl (80-97); RED CELL DISTRIBUTION WIDTH 16.4 % (11.5-14.0); WHITE BLOOD COUNT 10.3 10^3/uL (4.0-10.5)
[2017-05-28 07:58] LABS: ALANINE AMINOTRANSFERASE 200 U/L (21-72); ALBUMIN 2.3 g/dL (3.5-5.0); ALKALINE PHOSPHATASE 48 U/L (38-126); ASPARTATE AMINO TRANSFERASE 61 U/L (17-59); BILIRUBIN,DIRECT 0.5 mg/dL (0.0-0.4); BILIRUBIN,TOTAL 0.9 mg/dL (0.2-1.3); BLOOD UREA NITROGEN 17 mg/dL (7-20); CALCIUM 8.1 mg/dL (8.4-10.2); CARBON DIOXIDE 25 mmol/L (22-30); CHLORIDE 103 mmol/L (98-107); CREATININE RESULT 0.62 mg/dL (0.52-1.25); GLUCOSE 200 mg/dL (75-110); POTASSIUM 4.3 mmol/L (3.6-5.0); SODIUM 132.2 mmol/L (137-145); TOTAL PROTEIN 4.4 g/dL (6.3-8.2)
[2017-05-28] MEDS: VANCOMYCIN HCL 1,000 MG in DEXTROSE 5%-WATER 250 ML IV SCH (08:05)
[2017-05-28] MEDS: IPRATROPIUM/ALBUTEROL 0.5-2.5 MG/3 ML AMPUL NEB SCH ×3 (09:08→19:59)
[2017-05-28 09:48] LABS: ANION GAP 5 (5-19)
[2017-05-28 10:04] LABS: BAND NEUTROPHILS % (MANUAL) 9 % (3-5); BASOPHILS % (MANUAL) 0 % (0-2); EOSINOPHILS % (MANUAL) 1 % (0-6); HEMOGLOBIN 12.3 g/dL (13.5-17.0); LYMPHOCYTES % (MANUAL) 3 % (13-45); TOTAL CELLS COUNTED 100
[2017-05-28 10:05] LABS: TOXIC GRANULATION SLIGHT
[2017-05-28] MEDS: INSULIN LISPRO 100 UNIT/ML 3 ML VIAL SUBCUT PRN ×3 (10:25→23:53)
[2017-05-28] MEDS: NORMAL SALINE 1000 ML 1,000 ML IV PRN (10:26)
[2017-05-28] MEDS: ENOXAPARIN SODIUM INJ 60 MG/0.6 ML DISP.SYRIN SUBCUT SCH (10:26)
[2017-05-28] MEDS: LACTOBACILLUS ACIDOPHILUS 250 MG TAB PO SCH ×2 (10:27→17:06)
[2017-05-28] MEDS: GUAIFENESIN 600 MG TABLET.SA PO SCH ×2 (10:27→22:34)
[2017-05-28] MEDS: LEVETIRACETAM 500 MG TABLET PO SCH ×2 (10:27→22:34)
[2017-05-28] MEDS: NYSTATIN CREAM 15 GM TP SCH ×3 (10:28→20:31)
[2017-05-28] MEDS: NYSTATIN/DEXAMETH/DIPHEN SUSP 120 ML PO SCH ×4 (10:28→22:34)
[2017-05-28] MEDS: DEXAMETHASONE 4 MG TABLET PO SCH ×3 (10:28→17:06)
[2017-05-28] MEDS ORDERED: FLUCONAZOLE 200 MG/NS RTU 100 ML IV SCH (12:00)
[2017-05-28] MEDS ORDERED: NORMAL SALINE 1000 ML 1,000 ML IV PRN (13:36)
--- NOTE | 2017-05-28 13:50 | PDOC PROGRESS REPORT ---
Subjective Progress Note for:: 05/28/17 Subjective:: Patient found to have gram-negative bacteremia overnight. Patient reports he is feeling quite a bit better today. Patient denies chest pain, shortness of breath, abdominal pain, nausea, vomiting , fevers, chills, diarrhea, headache, new onset weakness. Patient reports he has not had a bowel movement in several days, but his had reported yesterday that he had been having diarrhea prior to admission. Physical Exam Vital Signs: Temp Pulse Resp BP Pulse Ox 97.6 F 97 18 97/66 L 95 05/28/17 12:17 05/28/17 12:17 05/28/17 12:17 05/28/17 12:17 05/28/17 12:17 Intake & Output 05/27/17 05/28/17 05/29/17 06:59 06:59 06:59 Intake Total 2295 598 Balance 2295 598 Weight 65.6 kg Exam: General: Awake alert and oriented x3, no acute respiratory distress HEENT: s/p craniotomy, PERRL, eyes medially deviated, oropharynx is moist, pink , improvement of thrush, no scleral icterus, no conjunctival injection Neck: No JVD, trachea midline Chest: Clear to auscultation bilaterally, no wheezes rhonchi or rales CV: Regular rate and rhythm, normal S1 and S2, no murmur, rub, or gallop Abdomen: Soft, nontender to palpation, nondistended, active bowel sounds; no rebound, rigidity, or guarding Extremities: No cyanosis, clubbing or edema Neuro: left facial droop, medial deviation of eyes; awake alert and oriented x3 Psych: Normal mood and affect Results Laboratory Results: 05/28/17 04:22 05/28/17 04:22 05/28/17 05/28/17 04:22 04:22 WBC 10.3 RBC 3.50 L Hgb 12.3 L D Hct 35.7 L MCV 102 H MCH 35.1 H MCHC 34.4 RDW 16.4 H Plt Count 105 L Seg Neutrophils % Not Reportable Lymphocytes % Not Reportable Monocytes % Not Reportable Eosinophils % Not Reportable Basophils % Not Reportable Absolute Neutrophils Not Reportable Absolute Lymphocytes Not Reportable Absolute Monocytes Not Reportable Absolute Eosinophils Not Reportable Absolute Basophils Not Reportable Sodium 132.2 L Potassium 4.3 Chloride 103 Carbon Dioxide 25 Anion Gap 5 BUN 17 Creatinine 0.62 Est GFR ( Amer) > 60 Est GFR (Non-Af Amer) > 60 Glucose 200 H Calcium 8.1 L Total Bilirubin 0.9 AST 61 H ALT 200 H Alkaline Phosphatase 48 Total Protein 4.4 L Albumin 2.3 L Impressions: Chest X-Ray 05/27/17 03:06 IMPRESSION: No acute cardiopulmonary findings. Chest/Abdomen CTA 05/27/17 03:48 IMPRESSION: 1. Three right lower lobar pulmonary nodules measure up to 1.2 cm each. Infectious, inflammatory, and neoplastic processes are in the differential diagnosis. CT surveillance recommended in 3 months or sooner, as clinically warranted. NO PULMONARY EMBOLI. 2. Indeterminate subcentimeter calcified lesions of the thyroid gland; correlation with thyroid sonogram recommended. 3. A 2.7 cm gastric diverticulum. Assessment & Plan - Diagnosis (1) Sepsis Qualifiers: Sepsis type: sepsis due to unspecified organism Qualified Code(s): A41.9 - Sepsis, unspecified organism Is this a current diagnosis for this admission?: Yes Plan: 2/2 to UTI with GNR and bacteremia complicated by chemotherapy and chronic dexamethasone use. Repeat CXR and stop Vancomycin. (2) UTI (urinary tract infection) Qualifiers: Urinary tract infection type: acute cystitis Hematuria presence: with hematuria Qualified Code(s): N30.01 - Acute cystitis with hematuria Is this a current diagnosis for this admission?: Yes Plan: Place patient on levaquin, Cefepime Day #2. (3) Thrush, oral Is this a current diagnosis for this admission?: Yes Plan: Much improved. Continue fluconazole and nystatin. (4) HTN (hypertension) Qualifiers: Hypertension type: essential hypertension Qualified Code(s): I10 - Essential (primary) hypertension Is this a current diagnosis for this admission?: Yes Plan: Stop Lisinopril QHS Concern for adrenal insufficiency in light of chronic corticosteroid use and will consider adding stress dose steroid or increase dexamethasone (5) Balantidiasis Is this a current diagnosis for this admission?: Yes Plan: place on topical nystatin (6) DVT (deep venous thrombosis) Qualifiers: DVT location: lower extremity Affected thrombotic vein of extremity: unspecified vein of extremity Chronicity: chronic Laterality: unspecified laterality Qualified Code(s): I82.509 - 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 Continue dexamethasone (8) Transaminitis Is this a current diagnosis for this admission?: Yes Plan: Mild. Likely 2/2 chemotherapy and dehydration (9) Thrombocytopenia Is this a current diagnosis for this admission?: Yes Plan: Likely 2/2 sepsis Consider transition to Arixtra and stopping lovenox and sending HIT antibodies Have consulted his Heme/Onc physician and appreciate imput - Time Time Spent with patient: 25-34 minutes Medications reviewed and adjusted accordingly: Yes - Inpatient Certification Based on my medical assessment, after consideration of the patient's comorbidities, presenting symptoms, or acuity I expect that the services needed warrant INPATIENT care.: Yes I certify that my determination is in accordance with my understanding of Medicare's requirements for reasonable and necessary INPATIENT services [42 CFR 412.3e].: Yes Medical Necessity: Need For IV Fluids, Need for IV Antibiotics Post Hospital Care: 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
--- NOTE | 2017-05-28 14:17 | RADIOLOGY REPORT (SQ) ---
EXAM DESCRIPTION: CHEST PA/LAT COMPLETED DATE/TIME: 05/28/2017 2:02 pm REASON FOR STUDY: mild hypoxia, concern for pna COMPARISON: 12/19/2015 EXAM PARAMETERS: NUMBER OF VIEWS: two views TECHNIQUE: Digital Frontal and Lateral radiographic views of the chest acquired. RADIATION DOSE: NA LIMITATIONS: none FINDINGS: LUNGS AND PLEURA: Chronic interstitial changes are present. There is no infiltrate. Ther e is no mass. A minimal amount of pleural fluid is suggested on each side. MEDIASTINUM AND HILAR STRUCTURES: No masses or contour abnormalities. HEART AND VASCULAR STRUCTURES: Heart normal size. No evidence for failure. BONES: No acute findings. HARDWARE: None in the chest. OTHER: No other significant finding. IMPRESSION: Chronic lung changes with the suggestion of a minimal amount of pleural fluid but no acu te pulmonary disease. TECHNICAL DOCUMENTATION: JOB ID: [id number] [employer]- All Rights Reserved
[2017-05-28] MEDS: LEVOFLOXACIN 750 MG/D5W RTU 150 ML IV SCH (14:58)
[2017-05-28] MEDS ORDERED: FUROSEMIDE 20 MG TABLET PO ONE (19:45)
[2017-05-28] MEDS ORDERED: ENOXAPARIN SODIUM INJ 60 MG/0.6 ML DISP.SYRIN SUBCUT SCH (22:00)
[2017-05-28] MEDS: ENOXAPARIN SODIUM INJ 80 MG/0.8 ML DISP.SYRIN SUBCUT SCH (22:34)
[2017-05-29] MEDS: CEFEPIME 2 GM/D5W RTU 2 GM/50 ML RTUPB IV SCH (01:26)
[2017-05-29] MEDS: LANSOPRAZOLE 15 MG TAB.RAP.DR PO SCH ×2 (05:01→16:50)
[2017-05-29] MEDS: IPRATROPIUM/ALBUTEROL 0.5-2.5 MG/3 ML AMPUL NEB SCH (08:09)
[2017-05-29 08:17] LABS: HEMATOCRIT 38.1 % (37.9-51.0); HEMOGLOBIN 12.8 g/dL (13.5-17.0); HGB HCT DIFFERENCE 0.3; MEAN CORPUSCULAR HEMOGLOBIN 34.1 pg (27.0-33.4); MEAN CORPUSCULAR HGB CONC 33.7 g/dL (32.0-36.0); MEAN CORPUSCULAR VOLUME 101 fl (80-97); RED BLOOD COUNT 3.76 10^6/uL (4.35-5.55); RED CELL DISTRIBUTION WIDTH 16.5 % (11.5-14.0)
[2017-05-29 08:42] LABS: ALANINE AMINOTRANSFERASE 170 U/L (21-72); ALBUMIN 2.8 g/dL (3.5-5.0); ALKALINE PHOSPHATASE 62 U/L (38-126); ANION GAP 9 (5-19); ASPARTATE AMINO TRANSFERASE 37 U/L (17-59); BILIRUBIN,DIRECT 0.5 mg/dL (0.0-0.4); BILIRUBIN,TOTAL 0.6 mg/dL (0.2-1.3); BLOOD UREA NITROGEN 21 mg/dL (7-20); CALCIUM 8.8 mg/dL (8.4-10.2); CARBON DIOXIDE 24 mmol/L (22-30); CHLORIDE 103 mmol/L (98-107); CREATININE RESULT 0.69 mg/dL (0.52-1.25); GLUCOSE 156 mg/dL (75-110); MAGNESIUM 1.8 mg/dL (1.6-2.3); POTASSIUM 4.2 mmol/L (3.6-5.0); SODIUM 135.8 mmol/L (137-145); TOTAL PROTEIN 5.3 g/dL (6.3-8.2)
[2017-05-29 08:46] LABS: BAND NEUTROPHILS % (MANUAL) 2 % (3-5); BASOPHILS % (MANUAL) 0 % (0-2); EOSINOPHILS % (MANUAL) 0 % (0-6); LYMPHOCYTES % (MANUAL) 6 % (13-45); TOTAL CELLS COUNTED 100
[2017-05-29 08:49] LABS: ANISOCYTOSIS 1+
[2017-05-29] MEDS: DEXAMETHASONE 4 MG TABLET PO SCH ×3 (10:10→18:10)
[2017-05-29] MEDS: ENOXAPARIN SODIUM INJ 80 MG/0.8 ML DISP.SYRIN SUBCUT SCH ×2 (10:10→21:31)
[2017-05-29] MEDS: FLUCONAZOLE 100 MG TABLET PO SCH (10:10)
[2017-05-29] MEDS: LEVETIRACETAM 500 MG TABLET PO SCH ×2 (10:11→21:27)
[2017-05-29] MEDS: NYSTATIN/DEXAMETH/DIPHEN SUSP 120 ML PO SCH ×4 (10:11→21:33)
[2017-05-29] MEDS: LACTOBACILLUS ACIDOPHILUS 250 MG TAB PO SCH ×2 (11:14→18:10)
[2017-05-29] MEDS ORDERED: POLYETHYLENE GLYCOL 3350 POWDER 17 GM/1 PACKET PO PRN (13:40)
--- NOTE | 2017-05-29 13:49 | PDOC PROGRESS REPORT ---
Subjective Progress Note for:: 05/29/17 Subjective:: Patient found to have klebsiellla Patient reports he is feeling quite a bit better today. Patient denies chest pain, shortness of breath, abdominal pain, nausea, vomiting , fevers, chills, diarrhea, headache, new onset weakness. Patient has still not had a BM. Physical Exam Vital Signs: Temp Pulse Resp BP Pulse Ox 97.2 F 83 18 121/85 94 05/29/17 03:57 05/29/17 03:57 05/29/17 03:57 05/29/17 03:57 05/29/17 03:57 Intake & Output 05/28/17 05/29/17 05/30/17 06:59 06:59 06:59 Intake Total 2295 1603 Output Total 1025 Balance 2295 578 Weight 65.6 kg 64.5 kg Exam: General: Awake alert and oriented x3, no acute respiratory distress HEENT: s/p craniotomy, PERRL, eyes medially deviated, oropharynx is moist, pink , improvement of thrush, no scleral icterus, no conjunctival injection Neck: No JVD, trachea midline Chest: Clear to auscultation bilaterally, no wheezes rhonchi or rales CV: Regular rate and rhythm, normal S1 and S2, no murmur, rub, or gallop Abdomen: Soft, nontender to palpation, nondistended, active bowel sounds; no rebound, rigidity, or guarding Extremities: No cyanosis, clubbing or edema Neuro: left facial droop, medial deviation of eyes; awake alert and oriented x3 Psych: Normal mood and affect Results Laboratory Results: 05/28/17 04:22 05/28/17 04:22 05/28/17 05/28/17 04:22 04:22 WBC 10.3 RBC 3.50 L Hgb 12.3 L D Hct 35.7 L MCV 102 H MCH 35.1 H MCHC 34.4 RDW 16.4 H Plt Count 105 L Seg Neutrophils % Not Reportable Lymphocytes % Not Reportable Monocytes % Not Reportable Eosinophils % Not Reportable Basophils % Not Reportable Absolute Neutrophils Not Reportable Absolute Lymphocytes Not Reportable Absolute Monocytes Not Reportable Absolute Eosinophils Not Reportable Absolute Basophils Not Reportable Sodium 132.2 L Potassium 4.3 Chloride 103 Carbon Dioxide 25 Anion Gap 5 BUN 17 Creatinine 0.62 Est GFR ( Amer) > 60 Est GFR (Non-Af Amer) > 60 Glucose 200 H Calcium 8.1 L Total Bilirubin 0.9 AST 61 H ALT 200 H Alkaline Phosphatase 48 Total Protein 4.4 L Albumin 2.3 L Impressions: Chest/Abdomen CTA 05/27/17 03:48 IMPRESSION: 1. Three right lower lobar pulmonary nodules measure up to 1.2 cm each. Infectious, inflammatory, and neoplastic processes are in the differential diagnosis. CT surveillance recommended in 3 months or sooner, as clinically warranted. NO PULMONARY EMBOLI. 2. Indeterminate subcentimeter calcified lesions of the thyroid gland; correlation with thyroid sonogram recommended. 3. A 2.7 cm gastric diverticulum. Chest X-Ray 05/28/17 00:00 IMPRESSION: Chronic lung changes with the suggestion of a minimal amount of pleural fluid but no acute pulmonary disease. Assessment & Plan - Diagnosis (1) Sepsis Qualifiers: Sepsis type: sepsis due to unspecified organism Qualified Code(s): A41.9 - Sepsis, unspecified organism Is this a current diagnosis for this admission?: Yes Plan: 2/2 to UTI with klebseilla and bacteremia complicated by chemotherapy and chronic dexamethasone use. (2) UTI (urinary tract infection) Qualifiers: Urinary tract infection type: acute cystitis Hematuria presence: with hematuria Qualified Code(s): N30.01 - Acute cystitis with hematuria Is this a current diagnosis for this admission?: Yes Plan: Place patient on levaquin Day #3 stopped cefepime and vancomycin If remains afebrile for 24 hours, may be discharged home (3) Thrush, oral Is this a current diagnosis for this admission?: Yes Plan: Much improved. Continue fluconazole and nystatin. 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 Continue dexamethasone and will decrease dose to 4mg tid. Has previously been on taper with 4mg bid and 2mg QHS at home. (8) Transaminitis Is this a current diagnosis for this admission?: Yes Plan: Mild. Likely 2/2 chemotherapy and dehydration (9) Thrombocytopenia Is this a current diagnosis for this admission?: Yes Plan: Improving Likely 2/2 sepsis pending HIT antibodies Have consulted his Heme/Onc physician and appreciate imput - Time Time Spent with patient: 25-34 minutes Medications reviewed and adjusted accordingly: Yes Anticipated discharge: Home with Homehealth Within: within 24 hours - Inpatient Certification Based on my medical assessment, after consideration of the patient's comorbidities, presenting symptoms, or acuity I expect that the services needed warrant INPATIENT care.: Yes I certify that my determination is in accordance with my understanding of Medicare's requirements for reasonable and necessary INPATIENT services [42 CFR 412.3e].: Yes Medical Necessity: Need for IV Antibiotics Post Hospital Care: D/C [employer] Title Clerk 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
[2017-05-29] MEDS: LEVOFLOXACIN 750 MG/D5W RTU 150 ML IV SCH (14:25)
[2017-05-29] MEDS ORDERED: METFORMIN HCL 500 MG TABLET PO ONE (14:30)
[2017-05-29] MEDS: INSULIN LISPRO 100 UNIT/ML 3 ML VIAL SUBCUT PRN (16:50)
--- NOTE | 2017-05-29 17:18 | Physician Advisory Note ---
Physician Advisor ProgressNote .: [facility] medical [facility] for this patient. Physician Advisor Statement: Nice documentation of sepsis due to Klebsiella UTI. Please consider documenting, if you agree: 1. "Acute hyponatremia, likely due to " Sepsis dx support: pt w/ MAP 66, BP as low as 97/61, plts 140, TBili 1.7, lactate 2.4, so met Sepsis-3 criteria for dx sepsis. Thanks! CK
[2017-05-29] MEDS: NYSTATIN CREAM 15 GM TP SCH (18:13)
[2017-05-30 05:13] LABS: HEMATOCRIT 37.7 % (37.9-51.0); HEMOGLOBIN 12.9 g/dL (13.5-17.0); MEAN CORPUSCULAR HEMOGLOBIN 34.2 pg (27.0-33.4); MEAN CORPUSCULAR HGB CONC 34.2 g/dL (32.0-36.0); MEAN CORPUSCULAR VOLUME 100 fl (80-97); RED BLOOD COUNT 3.76 10^6/uL (4.35-5.55); RED CELL DISTRIBUTION WIDTH 16.1 % (11.5-14.0); WHITE BLOOD COUNT 11.7 10^3/uL (4.0-10.5)
[2017-05-30 05:20] LABS: ALANINE AMINOTRANSFERASE 139 U/L (21-72); ALBUMIN 2.6 g/dL (3.5-5.0); ALKALINE PHOSPHATASE 57 U/L (38-126); ANION GAP 6 (5-19); ASPARTATE AMINO TRANSFERASE 36 U/L (17-59); BILIRUBIN,DIRECT 0.4 mg/dL (0.0-0.4); BILIRUBIN,TOTAL 0.6 mg/dL (0.2-1.3); BLOOD UREA NITROGEN 22 mg/dL (7-20); CALCIUM 8.9 mg/dL (8.4-10.2); CARBON DIOXIDE 24 mmol/L (22-30); CHLORIDE 104 mmol/L (98-107); CREATININE RESULT 0.53 mg/dL (0.52-1.25); GLUCOSE 181 mg/dL (75-110); POTASSIUM 3.8 mmol/L (3.6-5.0); SODIUM 134.1 mmol/L (137-145)
[2017-05-30 05:33] LABS: BAND NEUTROPHILS % (MANUAL) 2 % (3-5); BASOPHILS % (MANUAL) 0 % (0-2); EOSINOPHILS % (MANUAL) 0 % (0-6); LYMPHOCYTES % (MANUAL) 4 % (13-45); TOTAL CELLS COUNTED 100
[2017-05-30 05:35] LABS: ANISOCYTOSIS 1+; OVALOCYTES SLIGHT; POIKILOCYTOSIS SLIGHT; TOXIC GRANULATION SLIGHT
[2017-05-30] MEDS: LANSOPRAZOLE 15 MG TAB.RAP.DR PO SCH (06:47)
[2017-05-30] MEDS ORDERED: METFORMIN HCL 500 MG TABLET PO SCH (08:00)
[2017-05-30] MEDS: ENOXAPARIN SODIUM INJ 80 MG/0.8 ML DISP.SYRIN SUBCUT SCH (09:36)
[2017-05-30] MEDS: LACTOBACILLUS ACIDOPHILUS 250 MG TAB PO SCH (09:37)
[2017-05-30] MEDS: LEVETIRACETAM 500 MG TABLET PO SCH (09:37)
[2017-05-30] MEDS: FLUCONAZOLE 100 MG TABLET PO SCH (09:37)
[2017-05-30] MEDS: NYSTATIN/DEXAMETH/DIPHEN SUSP 120 ML PO SCH ×2 (09:38→14:17)
[2017-05-30] MEDS: DEXAMETHASONE 4 MG TABLET PO SCH ×2 (09:38→14:17)
[2017-05-30] MEDS: NYSTATIN CREAM 15 GM TP SCH (09:42)
[2017-05-30] MEDS: LEVOFLOXACIN 750 MG/D5W RTU 150 ML IV SCH (14:17)
--- NOTE | 2017-05-30 14:40 | PDOC DISCHARGE SUMMARY ---
General - Admit/Disc Date/PCP Admission Date/Primary Care Provider: 05/27/17 07:20 Dr. londono Discharge Date: 05/30/17 - Discharge Diagnosis (1) Sepsis Is this a current diagnosis for this admission?: Yes (2) UTI (urinary tract infection) Is this a current diagnosis for this admission?: Yes (3) Thrush, oral Is this a current diagnosis for this admission?: Yes (4) HTN (hypertension) Is this a current diagnosis for this admission?: Yes (5) Balantidiasis Is this a current diagnosis for this admission?: Yes (6) DVT (deep venous thrombosis) Is this a current diagnosis for this admission?: Yes (7) Brain cancer Is this a current diagnosis for this admission?: Yes (8) Transaminitis Is this a current diagnosis for this admission?: Yes (9) Thrombocytopenia Is this a current diagnosis for this admission?: Yes (10) Hyponatremia with normal extracellular fluid volume Is this a current diagnosis for this admission?: Yes - Additional Information Resuscitation Status: Do Not Resuscitate Discharge Diet: Regular Discharge Activity: Activity As Tolerated, Supervised Activity Home Medications: Acetaminophen [Tylenol Extra Strength 500 mg Tablet] 1,000 mg PO Q8 PRN Dexamethasone [Decadron 4 mg Tablet] 4 mg PO ASDIR PRN 05/27/17 Levetiracetam [Keppra 500 mg Tablet] 500 mg PO Q12 05/27/17 Omeprazole 40 mg PO DAILY 05/27/17 Ondansetron HCl [Zofran 8 mg Tablet] 8 mg PO Q8HP PRN 05/27/17 Oxycodone HCl [Oxy-Ir 5 mg Tablet] 10 mg PO Q4HP PRN 05/27/17 Dexamethasone [Decadron 4 mg Tablet] 4 mg PO TID tablet 05/30/17 Enoxaparin Sodium [Lovenox Inj 80 mg/0.8 ml Disp.syrin] 65 mg SUBCUT Q12 disp.syrin 05/30/17 Fluconazole [Diflucan 100 mg Tablet] 100 mg PO DAILY #5 tablet 05/30/17 Levofloxacin [Levaquin 750 mg Tablet] 750 mg PO DAILY #7 tab 05/30/17 Metformin HCl [Glucophage 500 mg Tablet] 250 mg PO BIDACBS #60 tablet 05/30/17 History of Present Illness History of Present Illness: CHERRIE BIRD is a 61 year old male who is currently undergoing treatment for glioblastoma multiforme grade IV who recently started a new chemotherapeutic agent of temozolmide who presents to the ER with dyspnea. Patient got up to the bathroom and returned to the bed with shortness of breath and tachypnea. Patient has also been having dyuria, frequency, incontinence, and urge. Patient also complains of thrush. Patient denies cough, hemoptysis, and URI symptoms. Patient found to have tachycardia, bandemia, tachypnea, and overt uti in ER meeting sepsis criteria. Referred to hospitalist service. Hospital Course Hospital Course: Patient was started on broad-spectrum antibiotic therapy. Patient's blood and urine cultures immediately returned Klebsiella. This was tapered to Levaquin alone. Patient tolerated 24 hours of this without fever. Initially, there was concern for pneumonia, but repeated chest x-ray ruled this out. Patient's Decadron was increased. Patient suffered from significant thrush and was treated with fluconazole successfully. Patient was found to have a hemoglobin A1c of 5.5 and was started on metformin 250 p.o. twice daily. After discussion with patient's , his lisinopril and Crestor were stopped. Patient was doing well and discharged home in stable condition. Physical Exam Vital Signs: Temp Pulse Resp BP Pulse Ox 98.1 F 76 18 136/89 H 97 05/30/17 11:10 05/30/17 11:10 05/30/17 11:10 05/30/17 11:10 05/30/17 11:10 Intake & Output 05/29/17 05/30/17 05/31/17 06:59 06:59 06:59 Intake Total 1603 1391 360 Output Total 1025 1250 550 Balance 578 141 -190 Weight 64.5 kg 63.1 kg Exam: General: Awake alert and oriented x3, no acute respiratory distress HEENT: s/p craniotomy, PERRL, eyes medially deviated, oropharynx is moist, pink , improvement of thrush, no scleral icterus, no conjunctival injection Neck: No JVD, trachea midline Chest: Clear to auscultation bilaterally, no wheezes rhonchi or rales CV: Regular rate and rhythm, normal S1 and S2, no murmur, rub, or gallop Abdomen: Soft, nontender to palpation, nondistended, active bowel sounds; no rebound, rigidity, or guarding Extremities: No cyanosis, clubbing or edema Neuro: left facial droop, medial deviation of eyes; awake alert and oriented x3 Psych: Normal mood and affect. Results Laboratory Results: 05/30/17 04:36 05/30/17 04:36 05/30/17 05/30/17 04:36 04:36 WBC 11.7 H RBC 3.76 L Hgb 12.9 L Hct 37.7 L MCV 100 H MCH 34.2 H MCHC 34.2 RDW 16.1 H Plt Count 134 L Seg Neutrophils % Not Reportable Lymphocytes % Not Reportable Monocytes % Not Reportable Eosinophils % Not Reportable Basophils % Not Reportable Absolute Neutrophils Not Reportable Absolute Lymphocytes Not Reportable Absolute Monocytes Not Reportable Absolute Eosinophils Not Reportable Absolute Basophils Not Reportable Sodium 134.1 L Potassium 3.8 Chloride 104 Carbon Dioxide 24 Anion Gap 6 BUN 22 H Creatinine 0.53 Est GFR ( Amer) > 60 Est GFR (Non-Af Amer) > 60 Glucose 181 H Calcium 8.9 Total Bilirubin 0.6 AST 36 ALT 139 H Alkaline Phosphatase 57 Total Protein 5.0 L Albumin 2.6 L Impressions: Chest/Abdomen CTA 05/27/17 03:48 IMPRESSION: 1. Three right lower lobar pulmonary nodules measure up to 1.2 cm each. Infectious, inflammatory, and neoplastic processes are in the differential diagnosis. CT surveillance recommended in 3 months or sooner, as clinically warranted. NO PULMONARY EMBOLI. 2. Indeterminate subcentimeter calcified lesions of the thyroid gland; correlation with thyroid sonogram recommended. 3. A 2.7 cm gastric diverticulum. Chest X-Ray 05/28/17 00:00 IMPRESSION: Chronic lung changes with the suggestion of a minimal amount of pleural fluid but no acute pulmonary disease. Qualifiers PATEINT BEING DISCHARGED WITH ANY OF THE FOLLOWING DIAGNOSIS?: VTE (PE or DVT) VTE patient discharged on overlapping Therapy?: Yes Reason(s) for not prescribing Overlap Therapy:: Not indicated - on lovenox per his aids nurse
[2017-05-30 16:59] VITALS: BP 136/95
== END 2017-05-30 18:00 | disposition home health service (06) | DRG 872 ==
LOC: ER 03:04 → EH 07:20 → UNDOADMIN 07:34 → 3W 09:55
PROVIDERS: ADMIT Family Medicine; ATTEND Family Medicine
DX: A41.9 Sepsis, unspecified organism (principal); N30.01 Acute cystitis with hematuria; B96.1 Klebsiella pneumoniae [K. pneumoniae] as the cause of diseases classified elsewhere; B37.0 Candidal stomatitis; E87.1 Hypo-osmolality and hyponatremia; C71.8 Malignant neoplasm of overlapping sites of brain; I82.509 Chronic embolism and thrombosis of unspecified deep veins of unspecified lower extremity; E86.0 Dehydration; K21.9 Gastro-esophageal reflux disease without esophagitis; I10 Essential (primary) hypertension; A07.0 Balantidiasis; D69.6 Thrombocytopenia, unspecified; E78.5 Hyperlipidemia, unspecified; Z66 Do not resuscitate; Z79.02 Long term (current) use of antithrombotics/antiplatelets; Z79.899 Other long term (current) drug therapy; Z79.84 Long term (current) use of oral hypoglycemic drugs; Z87.891 Personal history of nicotine dependence; Z88.0 Allergy status to penicillin
CPT/HCPCS: 36415; 71010; 71020; 71275; 80053; 80202; 81001; 82803; 82962; 83605; 83735; 84484; 85025; 85610; 85730; 86022; 87040; 87077; 87086; 87088; 87186; 93005; 93010; 94640; 94667; 94668; 94799; 96361; 96365; 99285; J0692; J0696; J1450; J1650; J1815; J1956; J3370; J3490; J7030; J7060; J7620

== ENCOUNTER → 2017-06-22 | Outpatient (CLI) | payer BC ==
--- NOTE | 2017-06-23 10:48 | RADIOLOGY REPORT (SQ) ---
EXAM DESCRIPTION: PET CT SKULL/THIGH COMPLETED DATE/TIME: 06/22/2017 10:08 pm REASON FOR STUDY: RIGHT MIDDLE NODULE R91.8 OTHER NONSPECIFIC ABNORMAL FINDING OF LUNG FIELD COMPARISON: Report only, CT chest abdomen and pelvis 01/12/2017, [facility] and lateral chest 05/28/2017 CT angio chest 05/27/2017 MRI brain 01/30/2017 RADIONUCLIDE AND DOSE: 11.2 mCi F18 FDG The route of agent administration: Intravenous FASTING BLOOD SUGAR: 132 mg/dl CONTRAST TYPE AND DOSE: No CT contrast given. TECHNIQUE: Blood glucose level was verified. Above dose of FDG was injected intravenously. 2-D seg mented attenuation correction images were obtained from the base of the skull to the midthighs. Nonc ontrast CT images were obtained for attenuation correction and fusion with emission images. CT image s were performed without oral or intravenous contrast and are not sensitive for parenchymal lesions. A series of overlapping emission PET images were obtained. Images reviewed and manipulated at [facility] work station by the radiologist. Images stored on PACS. LIMITATIONS: None. FINDINGS: HEAD AND NECK: No areas of abnormal metabolic activity in the soft tissues of the head and neck. CHEST: Patient recently has been treated for pneumonia. There is minimal residual right perihilar ai rspace disease, with SUV 1.4 to 1.6 which is at baseline. Along the posterior pleural surface, posterior aspect right lower lobe, two ill-defined pleural-based nodules are present with minimal metabolic activity: 1.4 x 1 cm ill-defined pleural based right lower lobe nodule on axial image 101 has SUV 2.3. 1.2 x 0.8 cm pleural based right lower lobe lung nodule on axial image 104 has SUV of 1.9. There are several smaller subcentimeter ill-defined lung parenchymal nodules along the periphery of t he left upper lobe anteriorly and adjacent to the major fissure, and in the right upper lobe adjacent to the minor fissure on axial images 94-98. These are non metabolic. No pleural effusion. ABDOMEN AND PELVIS: No areas of abnormal metabolic activity in the abdomen or pelvis. Expected physi ologic activity is present in the genitourinary system and bowel. PROXIMAL LOWER EXTREMITIES: No areas of abnormal metabolic activity in the soft tissues of the lower extremities. BONES: No abnormal metabolic activity in the visualized skeleton. ADDITIONAL CT FINDINGS: Old right temporal craniotomy with operative cavity in the right frontal n[place]ian region. Posterior fossa arachnoid cyst. Mild thyromegaly. OTHER: Blood pool background activity SUV 1.8. Liver background activity SUV 2.0. IMPRESSION: Probable postinfectious/postinflammatory changes in the lungs. TECHNICAL DOCUMENTATION: JOB ID: [id number] [employer]- All Rights Reserved
== END ==
LOC: RAD 18:40
PROVIDERS: ATTEND Internal Medicine Medical Oncology
DX: R91.8 Other nonspecific abnormal finding of lung field (principal)
CPT/HCPCS: 78815; A9552

== ENCOUNTER → 2017-08-05 | Outpatient (CLI) | payer BC ==
--- NOTE | 2017-08-06 10:25 | ST Modified Barium Swallow ---
Recommendation - Recommendations Recommendations: Continue with current treatment, no diet changes indicated, no straw use recommended. Medical Diagnoses - Medical Diagnoses Medical Diagnosis Description & ICD-10 Code(s): dysphagia R13.10 Other Medical Diagnoses/Co-Morbidities: difficulty walking, repeat falls, muscle weakness, oral thrush, hypertension, brain cancer. Currently receiving chemotherapy. ST Modified Barium Swallow - General Date: 08/05/17 Referring Physician: Dr. Alfredo Tapia Risks/Precautions: Falls, Aspiration - History History obtained from: Other - EMR -: Medical - Patient evaluated in outpatient setting for speech and swallowing concerns. At that time the followign was reported: Patient has diagnosis of glioblastoma multiforme of brain. Patient reports glioblastoma is gone but is still undergoing chemotherapy. Per notes, surgical resection 01/14/2017. Patient accompanied to evaluation by his son. Son reports that Kevin is difficult to understand on the phone, reports his speech is slurred. Patient was admitted to hospital 05/27/17 for pneumonia and discharged 05/30/17. Hospital course noted for sepsis, UTI, oral thrush, hypertension, balantidiasis, brain cancer, transaminitis, thrombocytopenia, and hyponatremia with normal extracellular fluid volume. Hospitalist's notes indicate initial concern for pneumonia but repeated chest x-ray ruled out. Family denies any other episodes of pneumonia or suspected pneumonia. Medications: Acetaminophen 325 mg, take q 6 hours as needed for pain, Dexamethasone 4mg, Enoxaprin 60 mg, inject subcutaneously every 12 hours, fluconazole 100mg, levetricetam 500 bid, lisinopril 5mg, omeprazole 40mg, ondansetron 8mg, oxycodone 5mg, 1 every 4 hours PRN for pain Allergies: penicillin - Functional Status Prior Functional Status: INDEPENDENT: feeding - independent - Subjective Patient/caregiver goal(s): safe swallow, r/o aspiration Cognitive-Linguistic Function: Functional Current Nutritional Means: PO Current PO diet: Regular Current symptoms: Coughing Pain: 0/5 - Objective Assessment: Upright, Left Lateral - Food Trials Used Food trials used: Thin liquids, Pureed, Regular The patient: fed by ST - Assessment Oral prep: Normal Labial closure: Adequate Leakage: None Mastication: Adequate Oral stage: Normal for this Procedure - Pharyngeal Stage Initiation of Pharyngeal Stage Reflex: Normal Decreased laryngeal elevation: No Reduced Velopharyngeal Closure: no Reduced pressure generation: No reduced tongue-based retraction: No Pre-swallow pooling in valleculae: Moderate - on trial with straw sip only Pre-Swallow pooling in pyriforms: None Reduced Thyro-Hyoid approximation: No Reduced epiglottic excursion: No Reduced pharyngeal peristalsis/contraction: No Multiple Swallows with: Cleared w/ Dry Swallow Post-swallow residulas vallecular: Moderate - on solid textures Post-Swallow residuals in pyriforms: None Pharyngeal Stage Comments: Good pharyngeal phase swallow seen. Premature spillage seen with straw sips of thin liquid only, which resulted in coughing, but no penetration seen. Some residue noted in valleculae post swallow, this cleared with dry swallow easily, but patient needed cue for dry swallow. - Fall Risk Assessment Medications/Conditions that increase fall risks include: Antidepressants, sedatives, anti-arrhythmic, diuretic, benzodiazipenes, neuroleptics. BP regulation problems, cardiac problems, balance or gait deficits, neurological problems. Is patient considered at risk for falls: yes Fall Risk Actions Taken: No action needed - Behavioral Observations During evaluation process patient: was pleasant, was cooperative Mental Status: Alert & Oriented X3 - Treatment / Educational Needs: Treatment/Education Needs: Treatment consisted of patient education on the role of the Speech Pathologist. Patient's plan of care and golas were communicated as well as scheduling and attendance policies. Recommendations for initial home program were shared. Patient demonstrated understanding and verbalized agreement. - Impression/Summary Laryngeal Penetration: No Tracheal Aspiration: no Effective compensatory strategies: chin tuck Patient presents with: Pharyngeal stage dysph. - mild pharyngeal dysphagia Risk of Aspiration: Mild Risk of nutritional compromise: None - Recommendations Solid diet recommendations: Regular Liquid Diet Modification: Thin Pt/Family education and followup with MD: Yes Dysphagia therapy with MEDICAL SUPPORT ASSISTANT: f/u with current thera. Recommended techniques: Fully Upright During Meal, Small Bites and Sips, Chin Tuck to Swallow Information, Precautions and Recommendations: Patient (Written), Patient (Verbal ) - Time Total Time: 20 - Plan of Care Patient to follow-up with referring physician: Yes Rehab potential for established goals: Good POC Procedures/Codes: pharyngeal exercises Strategies to optimize patient understanding include:: ongoing assessment of educational needs, implementation of educational strategies, and re-education. - - -: Thank you for the opportunity to work with this patient and his/her family. Should you have any questions about this patient's plan or progress, I can be reached at [phone]. Charge G Code? - - -: No
--- NOTE | 2017-08-06 19:10 | RADIOLOGY REPORT (SQ) ---
EXAM DESCRIPTION: KEYONAIE SWALLOW COMPLETED DATE/TIME: 08/05/2017 9:29 am REASON FOR STUDY: DYSPHAGIA, UNSPECIFIED R13.10 DYSPHAGIA, UNSPECIFIED FOOD IN PHARYNX CAUSING OTHER INJURY, SEQUELA T1 7.228 S COMPARISON: None. TECHNIQUE: Videofluoroscopic swallowing examination was performed in conjunction with speech patholo gy. Videofluoroscopic imaging was obtained and reviewed and these are the findings: RADIATION DOSE: Total fluoroscopy time: 1.6 minutes 1 fluoroscopy image saved to PACS. LIMITATIONS: None FINDINGS: The patient was brought into the fluoro room and placed upright on a modified barium swall ow chair. The patient was then given multiple consistencies mixed with barium to swallow under live fluoroscopic video guidance. According to the Speech Pathologist there was no laryngeal penetration and no tracheal aspiration. Premature spillage over the base of tongue into the vallecula prior to s wallow initiation was observed, more pronounced with a straw. No significant post swallow residual w as seen. Please see speech pathology report for further details and recommendations. IMPRESSION: NO EVIDENCE OF LARYNGEAL PENETRATION OR TRACHEAL ASPIRATION.PLEASE SEE SPEECH PATHOLOGIS T REPORT FOR OTHER FINDINGS AND RECOMMENDATIONS. COMMENT: Quality ID [id number]: Final reports for procedures using fluoroscopy that document radiation exp osure indices, or exposure time and number of fluorographic images (if radiation exposure indices are not available) TECHNICAL DOCUMENTATION: JOB ID: [id number] [employer]- All Rights Reserved
== END ==
LOC: RAD 08:32
PROVIDERS: ATTEND Family Medicine
DX: R13.10 Dysphagia, unspecified (principal)
CPT/HCPCS: 74230

== ENCOUNTER → 2017-09-15 | Outpatient (CLI) | payer BC ==
--- NOTE | 2017-09-15 15:33 | RADIOLOGY REPORT (SQ) ---
EXAM DESCRIPTION: CT HEAD WITH COMPLETED DATE/TIME: 09/15/2017 2:47 pm REASON FOR STUDY: C71.9 MALIGNANT NEOPLASM OF BRAIN, UNSPECIFIED C71.9 MALIGNANT NEOPLASM OF BRAIN, UNSPECIFIED COMPARISON: 01/11/2017 TECHNIQUE: Axial images acquired through the brain with intravenous contrast. Images reviewed with b one, brain and subdural windows. Images stored on PACS. All CT scanners at this facility use dose modulation, iterative reconstruction, and/or weight based d osing when appropriate to reduce radiation dose to as low as reasonably achievable (ALARA). [facility]: Dose Right [facility]: CareDose [facility]: Dose Right [facility]: Teradose 4D [facility]: mangofizz jobs CONTRAST TYPE AND DOSE: contrast/concentration: Isovue 370.00 mg/ml; Total Contrast Delivered: 50.0 ml; Total Saline Delivered: 50.1 ml RENAL FUNCTION: Creatinine 0.7 RADIATION DOSE: . LIMITATIONS: None. FINDINGS: There is a right frontoparietal craniotomy. Primarily rim enhancing intra-axial mass in t he right frontal lobe measures about 5.1 x 3.7 cm, previously 5.9 x 4.4 cm. There is a subcentimeter lesion on image 25 of series 5 which may represent a 2nd lesion in the right cerebral hemisphere. I nterval increase in vasogenic edema. No midline shift. Smaller mass previously seen in the left par ietal lobe no longer visualized. No active hemorrhage. IMPRESSION: Generalized favorable response to therapy. Questionable new lesion more anteriorly in t he right frontal lobe. EVIDENCE OF ACUTE STROKE: NO. TECHNICAL DOCUMENTATION: JOB ID: [id number] Quality ID # [id number]: Final reports with documentation of one or more dose reduction techniques (e.g., Au tomated exposure control, adjustment of the mA and/or kV according to patient size, use of iterative reconstruction technique) 2010 [employer]- All Rights Reserved
== END ==
LOC: RAD 13:53
PROVIDERS: ATTEND Internal Medicine Medical Oncology
DX: C71.1 Malignant neoplasm of frontal lobe (principal)
CPT/HCPCS: 70460; 82565

== ENCOUNTER → 2018-12-16 | Outpatient (CLI) | payer BC ==
--- NOTE | 2018-12-16 11:54 | RADIOLOGY REPORT (SQ) ---
EXAM DESCRIPTION: SHOULDER LEFT 2 OR MORE VIEWS COMPLETED DATE/TIME: 12/16/2018 11:08 am REASON FOR STUDY: PAIN, UNSPECIFIED R52 PAIN, UNSPECIFIED COMPARISON: PET-CT 06/22/2017 Two-view chest 05/28/2017 NUMBER OF VIEWS: Three views. TECHNIQUE: Internal rotation, external rotation, and Y view images acquired of the left shoulder. LIMITATIONS: None. FINDINGS: MINERALIZATION: Osteopenic. There is permeative lytic pattern in the left proximal momo l metaphysis which could be seen in disuse. Myeloma could produce this pattern. There is no fractur e of the left proximal humerus. BONES: No acute fracture or dislocation. No worrisome bone lesions. JOINTS: No glenohumeral dislocation. Acromioclavicular joint intact. VISUALIZED LUNGS AND RIBS: No pneumothorax. No rib fracture. SOFT TISSUES: No radiopaque foreign body. OTHER: No other significant finding. IMPRESSION: Osteopenia with permeative lytic pattern in the left proximal humerus which could be see n with disuse. TECHNICAL DOCUMENTATION: JOB ID: [id number] [employer]- All Rights Reserved Reading location - IP/workstation name: [email or web address]
== END ==
LOC: OD 10:35
PROVIDERS: ATTEND Internal Medicine Medical Oncology
DX: M25.512 Pain in left shoulder (principal); M85.812 Other specified disorders of bone density and structure, left shoulder

== ENCOUNTER 2019-05-26 16:33 | Inpatient (IN) | payer BC ==
--- NOTE | 2019-05-26 17:09 | ER Document Report ---
ED Medical Screen (RME) - General Chief Complaint: Abnormal Lab Results Stated Complaint: ABNORMAL LABS Time Seen by Provider: 05/26/19 16:54 Primary Care Provider: PAULO SUMMERS MD [Primary Care Provider] - Follow up as needed Notes: Patient is a 63-year-old male currently receiving chemo treatment who presents to the emergency department for the chief complaint of abnormal labs. in the room states that the patient has low potassium and an elevated sodium level from the lab work that was drawn last Friday. Family member states that the patient does receive IV chemo for brain cancer every 2 weeks. Last chemo was 1 week ago. Denies fever, nausea or vomiting. states that over the past 2 months the patient has become more confused. states that the patient has diarrhea daily estimating about 2-3 times per day which has been present for 2 months. states that he last was at [place] on 10 May where he had an MRI and was told that the cancer was stable. TRAVEL OUTSIDE OF THE [place] IN LAST 30 DAYS: No - Related Data Allergies/Adverse Reactions: Penicillins Allergy (Unknown, Verified 05/26/19 16:36) Blisters Past Medical History - Past Medical History Cardiac Medical History: Reports: Hx DVT, Hx Hypercholesterolemia, Hx Hypertension Renal/ Medical History: Denies: Hx Peritoneal Dialysis Malignancy Medical History: Reports Hx Brain Cancer GI Medical History: Reports: Hx Gastroesophageal Reflux Disease Past Surgical History: Reports: Hx Herniorrhaphy, Other - craniotomy - Immunizations Hx Diphtheria, Pertussis, Tetanus Vaccination: Yes Physical Exam - Vital signs Vitals: Temp Pulse Resp BP Pulse Ox 97.3 F 105 H 19 139/84 H 98 05/26/19 16:38 05/26/19 16:38 05/26/19 16:38 05/26/19 16:38 05/26/19 16:38 - Respiratory Respiratory status: No respiratory distress Chest status: Nontender Breath sounds: Normal Chest palpation: Normal Course - Re-evaluation Re-evalutation: 05/26/19 17:07 I have greeted and performed a rapid initial assessment of this patient. A comprehensive ED assessment and evaluation of the patient, analysis of test results and completion of the medical decision making process will be conducted by additional ED providers. - Vital Signs Vital signs: Temp Pulse Resp BP Pulse Ox 97.3 F 105 H 19 139/84 H 98 05/26/19 16:38 05/26/19 16:38 05/26/19 16:38 05/26/19 16:38 05/26/19 16:38 Doctor's Discharge - Discharge Referrals: PAULO SUMMERS MD [Primary Care Provider] - Follow up as needed
[2019-05-26] MEDS ORDERED: NORMAL SALINE 1000 ML 1,000 ML IV ONE (17:33)
[2019-05-26 18:24] LABS: HEMATOCRIT 28.2 % (37.9-51.0); HEMOGLOBIN 8.8 g/dL (13.5-17.0); MEAN CORPUSCULAR HEMOGLOBIN 30.3 pg (27.0-33.4); MEAN CORPUSCULAR HGB CONC 31.2 g/dL (32.0-36.0); MEAN CORPUSCULAR VOLUME 97 fl (80-97); PLATELET COUNT 123 10^3/uL (150-450); RED BLOOD COUNT 2.91 10^6/uL (4.35-5.55); RED CELL DISTRIBUTION WIDTH 19.3 % (11.5-14.0); WHITE BLOOD COUNT 11.4 10^3/uL (4.0-10.5)
[2019-05-26 18:31] LABS: ALKALINE PHOSPHATASE 138 U/L (38-126); ANION GAP 6 (5-19); ASPARTATE AMINO TRANSFERASE 33 U/L (17-59); BILIRUBIN,DIRECT 0.2 mg/dL (0.0-0.4); BILIRUBIN,TOTAL 0.8 mg/dL (0.2-1.3); BLOOD UREA NITROGEN 13 mg/dL (7-20); CARBON DIOXIDE 31 mmol/L (22-30); CHLORIDE 109 mmol/L (98-107); GLUCOSE 102 mg/dL (75-110)
[2019-05-26 18:33] LABS: POTASSIUM 2.6 mmol/L (3.6-5.0)
[2019-05-26 19:05] LABS: ABSOLUTE LYMPHOCYTES# (MANUAL) 0.5 10^3/uL (0.5-4.7); ABSOLUTE MONOCYTES # (MANUAL) 0.1 10^3/uL (0.1-1.4); BAND NEUTROPHILS % (MANUAL) 2 % (3-5); BASOPHILS % (MANUAL) 0 % (0-2); EOSINOPHILS % (MANUAL) 0 % (0-6); LYMPHOCYTES % (MANUAL) 4 % (13-45); MONOCYTES % (MANUAL) 1 % (3-13); SEGMENTED NEUTROPHILS % (MAN) 93 % (42-78); TOTAL CELLS COUNTED 100
[2019-05-26 19:07] LABS: ANISOCYTOSIS 2+; PLATELET COMMENT DECREASED; TOXIC GRANULATION 1+
--- NOTE | 2019-05-26 19:50 | RADIOLOGY REPORT (SQ) ---
EXAM DESCRIPTION: CT HEAD WITHOUT COMPLETED DATE/TIME: 05/26/2019 7:33 pm REASON FOR STUDY: fall, on anticoagulation COMPARISON: 09/15/2017 TECHNIQUE: Axial images acquired through the brain without intravenous contrast. Images reviewed wi th bone, brain and subdural windows. Additional sagittal and coronal reconstructions were generated. Images stored on PACS. All CT scanners at this facility use dose modulation, iterative reconstruction, and/or weight based d osing when appropriate to reduce radiation dose to as low as reasonably achievable (ALARA). [facility]: Dose Right [facility]: CareDose [facility]: Dose Right [facility]: Teradose 4D [facility]: Smart [employer] RADIATION DOSE: CT Rad equipment meets quality standard of care and radiation dose reduction techniq ues were employed. CTDIvol: 53.2 mGy. DLP: 1017 mGy-cm. mGy. LIMITATIONS: None. FINDINGS: VENTRICLES: Prominent ventricles secondary to involutional atrophy. CEREBRUM: Cortical atrophy. There are calcifications in the medial right frontal lobe adjacent to th e right lateral ventricle. There is significantly less edema in this area compared to the prior stud y. No masses. No hemorrhage. No midline shift. No evidence for acute infarction. Few scattered ar eas of low density in the white matter most likely chronic small vessel ischemic changes. CEREBELLUM: There is a very large area of decreased attenuation in the posterior fossa. Encephalomal acia in the cerebellum. . EXTRAAXIAL SPACES: No fluid collections. No masses. ORBITS AND GLOBE: No intra- or extraconal masses. Normal contour of globe without masses. CALVARIUM: No fracture. PARANASAL SINUSES: No fluid or mucosal thickening. SOFT TISSUES: No mass or hematoma. OTHER: No other significant finding. IMPRESSION: 1. Involutional changes with chronic microvascular ischemia. 2. Surgical changes in the right frontal lobe. The overall appearance of this area is improved. 3. Possible large posterior fossa arachnoid cyst. EVIDENCE OF ACUTE STROKE: NO. COMMENT: Quality ID # [id number]: Final reports with documentation of one or more dose reduction techniques (e.g., Automated exposure control, adjustment of the mA and/or kV according to patient size, use of iterative reconstruction technique) TECHNICAL DOCUMENTATION: JOB ID: [id number] [employer]- All Rights Reserved Reading location - IP/workstation name: [email or web address]
[2019-05-26] MEDS: POTASSI CL 20 MEQ/50 ML RIDER 20 MEQ/50 ML RTUPB IV SCH ×2 (20:43→23:13)
--- NOTE | 2019-05-26 20:55 | RADIOLOGY REPORT (SQ) ---
XR CHEST 1 VIEW EXAM DATE: 05/26/2019 12:00 AM CDT HISTORY: AMS. COMPARISON: 05/28/2017 FINDINGS: The heart size is within normal limits. No consolidation, pleural effusion, or pneumothorax is seen. The bony thorax is intact. IMPRESSION: No evidence of acute cardiopulmonary disease.
--- NOTE | 2019-05-26 21:35 | ER Document Report ---
Entered by CRISTINA VILLALOBOS SCRIBE 05/26/19 1843 Acting as scribe for:PAULINE RAMOS DO ED General - General Chief Complaint: Abnormal Lab Results Stated Complaint: ABNORMAL LABS Time Seen by Provider: 05/26/19 16:54 Primary Care Provider: PAULO SUMMERS MD [Primary Care Provider] - Follow up as needed Information source: Relative Cannot obtain history due to: Altered mental status Notes: Patient is a 63-year-old male with brain cancer that presents to the emergency department today as a result of abnormal outpatient blood work results which was drawn on 05/19/2019. The patient's last chemotherapy treatment was also performed on 05/19. Family at bedside states that the patient has been "talking out of his head" for the last x1-2 months. Family states that the last MRI the patient has had was on 05/02. Family reports that the patient has been having frequent falls in and out of bed. Patient is on Lovenox. Patient has had diarrhea for quite some which has not been worked up per family. History is limited secondary to the patient's medical condition. TRAVEL OUTSIDE OF THE [place] IN LAST 30 DAYS: No - Related Data Allergies/Adverse Reactions: Penicillins Allergy (Unknown, Verified 05/26/19 16:36) Blisters Past Medical History - General Information source: Relative, [facility], [facility] Records Cannot obtain history due to: Altered mental status - Social History Smoking Status: Former Smoker Cigarette use (# per day): No Frequency of alcohol use: None Drug Abuse: None Lives with: Family Family History: Reviewed & Not Pertinent, Malignancy Patient has suicidal ideation: No Patient has homicidal ideation: No - Past Medical History Cardiac Medical History: Reports: Hx DVT, Hx Hypercholesterolemia, Hx Hypertension Malignancy Medical History: Reports Hx Brain Cancer GI Medical History: Reports: Hx Gastroesophageal Reflux Disease Past Surgical History: Reports: Hx Herniorrhaphy, Hx Neurologic Surgery - brain surgery (removed 6 cm tumor) in January 2017, Other - craniotomyComment Only: Hx Abdominal Surgery - hernia surgery - Immunizations Hx Diphtheria, Pertussis, Tetanus Vaccination: Yes Review of Systems - Review of Systems -: Yes ROS unobtainable due to patient's medical condition Physical Exam - Vital signs Vitals: Temp Pulse Resp BP Pulse Ox 97.3 F 105 H 19 139/84 H 98 05/26/19 16:38 05/26/19 16:38 05/26/19 16:38 05/26/19 16:38 05/26/19 16:38 Interpretation: Tachycardic - General General appearance: Alert, Other - Cachectic and chronically ill-appearing In distress: None - HEENT Head: Other - Scars consistent with surgical history Extraocular movements intact: Yes Mucous membranes: Dry - Respiratory Respiratory status: No respiratory distress Breath sounds: Normal - Cardiovascular Rhythm: Regular, Tachycardia - Abdominal Inspection: Normal Tenderness: Nontender - Extremities General upper extremity: Normal inspection, Normal ROM General lower extremity: Normal inspection, Normal ROM - Neurological Cognition: Confused [place] Coma Scale Eye Opening: Spontaneous [place] Coma Scale Verbal: Confused [place] Coma Scale Motor: Obeys Commands [place] Coma Scale Total: 14 Course - Re-evaluation Re-evalutation: 05/26/19 21:33 Patient is a 63-year-old male with a history of glioblastoma who comes in due to a low potassium as an outpatient. Patient had blood drawn a week ago and his potassium was 3. He has had diarrhea. Cultures have been sent. C. difficile and WBCs negative. Today potassium was 2.6. K riders have been ordered. Patient also appears dry and has had decreased oral intake. Fluids have been given and patient with some improvement although still clinically appears dry and has not had urine output. Nurse attempted to straight cath patient but was bloody and patient asked her to stop so procedure was aborted. Discussed with the hospitalist service and will keep for observation to replace potassium and rehydrate. is agreeable to this plan. Stable the time of admission. - Vital Signs Vital signs: Temp Pulse Resp BP Pulse Ox 98.2 F 105 H 16 122/81 99 05/26/19 18:09 05/26/19 16:38 05/26/19 18:09 05/26/19 18:09 05/26/19 18:09 - Laboratory Result Diagrams: 05/26/19 17:40 05/26/19 17:40 Laboratory results interpreted by me: 05/26/19 05/26/19 17:40 17:40 WBC 11.4 H RBC 2.91 L Hgb 8.8 L Hct 28.2 L MCHC 31.2 L RDW 19.3 H Plt Count 123 L Seg Neuts % (Manual) 93 H Band Neutrophils % 2 L Lymphocytes % (Manual) 4 L Monocytes % (Manual) 1 L Abs Neuts (Manual) 10.8 H Sodium 146.1 H Potassium 2.6 L* Chloride 109 H Carbon Dioxide 31 H Calcium 8.0 L Alkaline Phosphatase 138 H Total Protein 5.0 L Albumin 3.0 L Discharge - Discharge Clinical Impression: Hypokalemia, Dehydration Brain cancer Qualifiers: Malignant neoplasm of brain location: unspecified location Qualified Code(s): C71.9 - Malignant neoplasm of brain, unspecified Condition: Stable Disposition: ADMITTED OBSERVATION Admitting Provider: Zenaida (Hospitalist) Unit Admitted: Telemetry - Zenaida Scribe Attestation: 05/26/19 21:34 I personally performed the services described in the documentation, reviewed and edited the documentation which was dictated to the scribe in my presence, and it accurately records my words and actions. I personally performed the services described in the documentation, reviewed and edited the documentation which was dictated to the scribe in my presence, and it accurately records my words and actions.
--- NOTE | 2019-05-26 22:02 | PDOC H&P ---
History of Present Illness Admission Date/PCP: 05/26/19 21:34 PAULO SUMMERS MD History of Present Illness: CHERRIE BIRD is a 63 year old male with a history of glioblastoma multiforme has had surgery and has been on chemotherapy, which he continues on currently, and he presents to the ER after being sent over by his oncologist for a low potassium. The chemo that he is on causes diarrhea, and they normally give it with a dose of an antidiarrheal medication, but he still has some diarrhea intermittently. He primarily says he just feels a little bit weak. He does not feel nauseated. His is been giving him some Lomotil at home but he still had a little bit of loose stool. His potassium was low at 3, but they gave him some IV fluids and it dropped down to 2.6 afterwards. His magnesium is normal. He has no other substantial metabolic derangements. He is being admitted for observation to give him some IV potassium. Past Medical History Cardiac Medical History: Reports: DVT, Hyperlipidema, Hypertension Malignancy Medical History: Reports: Brain Cancer GI Medical History: Reports: Gastroesophageal Reflux Disease Past Surgical History Past Surgical History: Reports: Herniorrhaphy, Other - craniotomy Social History Lives with: Family Smoking Status: Former Smoker Frequency of Alcohol Use: None Hx Recreational Drug Use: No Hx Prescription Drug Abuse: No Family History Family History: Reviewed & Not Pertinent, Malignancy Parental Family History Reviewed: Yes Children Family History Reviewed: NA Sibling(s) Family History Reviewed.: Unknown Medication/Allergy Home Medications: Acetaminophen [Tylenol Extra Strength 500 mg Tablet] 1,000 mg PO Q8 PRN 05/27/17 Dexamethasone [Decadron 4 mg Tablet] 4 mg PO ASDIR PRN 05/27/17 Levetiracetam [Keppra 500 mg Tablet] 500 mg PO Q12 05/27/17 Omeprazole 40 mg PO DAILY 05/27/17 Ondansetron HCl [Zofran 8 mg Tablet] 8 mg PO Q8HP PRN 05/27/17 Oxycodone HCl [Oxy-Ir 5 mg Tablet] 10 mg PO Q4HP PRN 05/27/17 Dexamethasone [Decadron 4 mg Tablet] 4 mg PO TID tablet 05/30/17 Enoxaparin Sodium [Lovenox Inj 80 mg/0.8 ml Disp.syrin] 65 mg SUBCUT Q12 disp.syrin 05/30/17 Fluconazole [Diflucan 100 mg Tablet] 100 mg PO DAILY #5 tablet 05/30/17 Levofloxacin [Levaquin 750 mg Tablet] 750 mg PO DAILY #7 tab 05/30/17 Metformin HCl [Glucophage 500 mg Tablet] 250 mg PO BIDACBS #60 tablet 05/30/17 Allergies/Adverse Reactions: Penicillins Allergy (Unknown, Verified 05/26/19 16:36) Blisters Review of Systems All systems: reviewed and no additional remarkable complaints except as stated - All systems were reviewed and were negative except as noted above Physical Exam Vital Signs: Temp Pulse Resp BP Pulse Ox 98.2 F 105 H 16 122/81 99 05/26/19 18:09 05/26/19 16:38 05/26/19 18:09 05/26/19 18:09 05/26/19 18:09 Intake & Output 05/25/19 05/26/19 05/27/19 06:59 06:59 06:59 Intake Total 1000 Balance 1000 Weight 51.4 kg General appearance: PRESENT: no acute distress, cooperative, disheveled Head exam: PRESENT: atraumatic, normocephalic Eye exam: PRESENT: EOMI, PERRLA. ABSENT: conjunctival injection, nystagmus, scleral icterus Ear exam: PRESENT: normal external ear exam Mouth exam: PRESENT: dry mucosa, neck supple Teeth exam: PRESENT: poor dentation Throat exam: ABSENT: post pharyngeal erythema Neck exam: PRESENT: full ROM. ABSENT: carotid bruit, JVD, lymphadenopathy, meningismus, tenderness, thyromegaly Respiratory exam: PRESENT: clear to auscultation leo, symmetrical, unlabored. ABSENT: accessory muscle use, chest wall tenderness, crackles, prolonged expiratory phas, rhonchi, tachypnea, wheezes Cardiovascular exam: PRESENT: +S1, +S2, tachycardia Pulses: PRESENT: normal carotid pulses Vascular exam: PRESENT: normal capillary refill GI/Abdominal exam: PRESENT: normal bowel sounds, soft. ABSENT: distended, guarding, rebound, tenderness Extremities exam: ABSENT: clubbing, pedal edema Musculoskeletal exam: PRESENT: normal inspection. ABSENT: deformity Neurological exam: PRESENT: alert, awake, oriented to person, oriented to place, oriented to situation, CN II-XII grossly intact. ABSENT: motor sensory deficit Psychiatric exam: PRESENT: flat affect, normal mood Skin exam: PRESENT: dry, warm Results Laboratory Results: 05/26/19 17:40 05/26/19 17:40 05/26/19 05/26/19 05/26/19 17:32 17:40 17:40 WBC 11.4 H RBC 2.91 L Hgb 8.8 L Hct 28.2 L MCV 97 MCH 30.3 MCHC 31.2 L RDW 19.3 H Plt Count 123 L Seg Neutrophils % Not Reportable Lymphocytes % Not Reportable Monocytes % Not Reportable Eosinophils % Not Reportable Basophils % Not Reportable Absolute Neutrophils Not Reportable Absolute Lymphocytes Not Reportable Absolute Monocytes Not Reportable Absolute Eosinophils Not Reportable Absolute Basophils Not Reportable Sodium Cancelled 146.1 H Potassium Cancelled 2.6 L* Chloride Cancelled 109 H Carbon Dioxide Cancelled 31 H Anion Gap Cancelled 6 BUN Cancelled 13 Creatinine Cancelled 0.79 Est GFR ( Amer) Cancelled > 60 Est GFR (Non-Af Amer) Cancelled > 60 Glucose Cancelled 102 Lactic Acid Calcium Cancelled 8.0 L Magnesium Cancelled 2.2 Total Bilirubin Cancelled 0.8 AST Cancelled 33 Alkaline Phosphatase Cancelled 138 H Total Protein Cancelled 5.0 L Albumin Cancelled 3.0 L Stool for White Cells 05/26/19 05/26/19 18:50 20:10 WBC RBC Hgb Hct MCV MCH MCHC RDW Plt Count Seg Neutrophils % Lymphocytes % Monocytes % Eosinophils % Basophils % Absolute Neutrophils Absolute Lymphocytes Absolute Monocytes Absolute Eosinophils Absolute Basophils Sodium Potassium Chloride Carbon Dioxide Anion Gap BUN Creatinine Est GFR ( Amer) Est GFR (Non-Af Amer) Glucose Lactic Acid 1.3 Calcium Magnesium Total Bilirubin AST Alkaline Phosphatase Total Protein Albumin Stool for White Cells NO WBCs SEEN Impressions: Chest X-Ray 05/26/19 00:00 IMPRESSION: No evidence of acute cardiopulmonary disease. Head CT 05/26/19 19:17 IMPRESSION: 1. Involutional changes with chronic microvascular ischemia. 2. Surgical changes in the right frontal lobe. The overall appearance of this area is improved. 3. Possible large posterior fossa arachnoid cyst. EVIDENCE OF ACUTE STROKE: NO. Assessment and Plan - Diagnosis (1) Dehydration Is this a current diagnosis for this admission?: Yes Plan: Going to give him some IV fluids. He also apparently was taken hydrocortisone every day, 2 tablets in the evening and 3 tablets in the morning, but his d oes not know the dosage. Typical long-term dosing is usually somewhere between 15 to 25 mg a day, so given 15 in the morning and 10 in the evening. (2) Hypokalemia Is this a current diagnosis for this admission?: Yes Plan: Magnesium is normal, so we are going to give him some IV potassium. We will recheck his labs in the morning, and if normal he can go home at that point. (3) Brain cancer Qualifiers: Malignant neoplasm of brain location: unspecified location Qualified Code(s): C71.9 - Malignant neoplasm of brain, unspecified Is this a current diagnosis for this admission?: Yes Plan: He will continue his follow-up with Dr. Summers. - Time Time Spent with patient: 35 or more minutes
[2019-05-27] MEDS: HYDROCORTISONE 10 MG TABLET PO SCH ×3 (00:04→22:04)
[2019-05-27] MEDS: POTASSI CL 20 MEQ/50 ML RIDER 20 MEQ/50 ML RTUPB IV SCH ×2 (02:05→06:55)
[2019-05-27] MEDS ORDERED: RINGERS SOLUTION,LACTATED 1,000 ML IV ONE ×3 (04:00→05:30)
[2019-05-27] MEDS ORDERED: POTASSI CL 20 MEQ/50 ML RIDER 20 MEQ/50 ML RTUPB IV ONE (06:50)
[2019-05-27 08:20] LABS: BLOOD UREA NITROGEN 10 mg/dL (7-20); CARBON DIOXIDE 24 mmol/L (22-30); CHLORIDE 119 mmol/L (98-107); GLUCOSE 72 mg/dL (75-110)
[2019-05-27 08:32] LABS: POTASSIUM 4.8 mmol/L (3.6-5.0)
[2019-05-27 08:33] LABS: ANION GAP 4 (5-19)
[2019-05-27 08:36] LABS: CALCIUM 6.6 mg/dL (8.4-10.2)
[2019-05-27] MEDS ORDERED: LOPERAMIDE HCL 2 MG CAPSULE PO PRN (09:00)
[2019-05-27] MEDS ORDERED: CALCIUM GLUCONATE 1000 MG/10 ML INJ IV ONE (09:15)
--- NOTE | 2019-05-27 11:21 | EKG REPORT ---
SEVERITY:- ABNORMAL ECG - SINUS TACHYCARDIA RIGHT BUNDLE BRANCH BLOCK : Confirmed by: Letty Saldana 27-May-2019 11:20:30
[2019-05-27] MEDS: RINGERS SOLUTION,LACTATED 1,000 ML IV PRN (12:14)
--- NOTE | 2019-05-27 12:17 | RADIOLOGY REPORT (SQ) ---
EXAM DESCRIPTION: CT ABD/PELVIS NO ORAL OR IV COMPLETED DATE/TIME: 05/27/2019 11:05 am REASON FOR STUDY: diarrhea, on chemo, assess for colitis COMPARISON: None. TECHNIQUE: CT scan of the abdomen and pelvis performed without intravenous or oral contrast. Images reviewed with lung, soft tissue, and bone windows. Reconstructed coronal and sagittal MPR images revi ewed. All images stored on PACS. All CT scanners at this facility use dose modulation, iterative reconstruction, and/or weight based d osing when appropriate to reduce radiation dose to as low as reasonably achievable (ALARA). [facility]: Dose Right [facility]: CareDose [facility]: Dose Right [facility]: Teradose 4D [facility]: Smart [employer] RADIATION DOSE: CT Rad equipment meets quality standard of care and radiation dose reduction techniq ues were employed. CTDIvol: 5.8 mGy. DLP: 318 mGy-cm.mGy. LIMITATIONS: Motion artifact. FINDINGS: LOWER CHEST: Small pleural effusions. No nodules or infiltrates. NON-CONTRASTED LIVER, SPLEEN, ADRENALS: Evaluation limited by lack of IV contrast. No identified sign ificant masses. PANCREAS: No masses. No peripancreatic inflammatory changes. GALLBLADDER: No identified stones by CT criteria. No inflammatory changes to suggest cholecystitis. RIGHT KIDNEY AND URETER: No suspicious masses. Assessment limited by lack of IV contrast. No signif icant calcifications. No hydronephrosis or hydroureter. LEFT KIDNEY AND URETER: No suspicious masses. Assessment limited by lack of IV contrast. No signifi cant calcifications. No hydronephrosis or hydroureter. AORTA AND RETROPERITONEUM: No aneurysm. No retroperitoneal masses or adenopathy. Inferior vena cava filter is present. BOWEL AND PERITONEAL CAVITY: No obvious masses or inflammatory changes. No free fluid. APPENDIX: Normal. PELVIS, BLADDER, AND ABDOMINAL WALL:No abnormal masses. No free fluid. Bladder normal. BONES: Degenerative changes in the spine. Pars defects with spondylolisthesis of L5 on S1. Compress ion deformity of the superior endplate of L3 and L4, presumably old. OTHER: No other significant finding. IMPRESSION: SMALL PLEURAL EFFUSIONS. NO OTHER SIGNIFICANT OR ACUTE PROCESS IN THE ABDOMEN OR PELVIS . COMMENT: Quality ID # [id number]: Final reports with documentation of one or more dose reduction techniques (e.g., Automated exposure control, adjustment of the mA and/or kV according to patient size, use of iterative reconstruction technique) TECHNICAL DOCUMENTATION: JOB ID: [id number] [employer]- All Rights Reserved Reading location - IP/workstation name: [email or web address]
--- NOTE | 2019-05-27 14:54 | PDOC PROGRESS REPORT ---
Subjective Progress Note for:: 05/27/19 Subjective:: This is a 63 yr old male with a PMH of glioblastoma multiforme, prior craniotomy and on chemotherapy, chronic diarrhea possibly from chemo who was brought in due to increasing weakness, diarrhea and severe hypokalemia. This morning, patient appeared weak but is easily arousable. She has had a few loose, nonbloody stools. He is coherent and is oriented to person and place. He denies chest pain or shortness of breath. Reason For Visit: HYPOKALEMIA Physical Exam Vital Signs: Temp Pulse Resp BP Pulse Ox 97.9 F 108 H 24 H 110/71 94 05/27/19 12:12 05/27/19 12:12 05/27/19 12:12 05/27/19 12:12 05/27/19 12:12 Intake & Output 05/26/19 05/27/19 05/28/19 06:59 06:59 06:59 Intake Total 3150 1050 Balance 3150 1050 Weight 112 lb 10.499 oz 112 lb 10.499 oz General appearance: PRESENT: no acute distress, thin Head exam: PRESENT: atraumatic, normocephalic Eye exam: PRESENT: conjunctiva pink, EOMI, PERRLA. ABSENT: scleral icterus Ear exam: PRESENT: normal external ear exam Mouth exam: PRESENT: moist, tongue midline Neck exam: ABSENT: carotid bruit, JVD, lymphadenopathy, thyromegaly Respiratory exam: PRESENT: clear to auscultation leo. ABSENT: rales, rhonchi, wheezes Cardiovascular exam: PRESENT: RRR. ABSENT: diastolic murmur, rubs, systolic murmur Pulses: PRESENT: normal dorsalis pedis pul GI/Abdominal exam: PRESENT: normal bowel sounds, soft. ABSENT: distended, guarding, mass, organolmegaly, rebound, tenderness Rectal exam: PRESENT: deferred Neurological exam: PRESENT: alert, awake, oriented to person, oriented to place, CN II-XII grossly intact. ABSENT: motor sensory deficit Results Laboratory Results: 05/26/19 17:40 05/27/19 07:39 05/26/19 05/26/19 05/26/19 17:32 17:40 17:40 WBC 11.4 H RBC 2.91 L Hgb 8.8 L Hct 28.2 L MCV 97 MCH 30.3 MCHC 31.2 L RDW 19.3 H Plt Count 123 L Seg Neutrophils % Not Reportable Lymphocytes % Not Reportable Monocytes % Not Reportable Eosinophils % Not Reportable Basophils % Not Reportable Absolute Neutrophils Not Reportable Absolute Lymphocytes Not Reportable Absolute Monocytes Not Reportable Absolute Eosinophils Not Reportable Absolute Basophils Not Reportable Sodium Cancelled 146.1 H Potassium Cancelled 2.6 L* Chloride Cancelled 109 H Carbon Dioxide Cancelled 31 H Anion Gap Cancelled 6 BUN Cancelled 13 Creatinine Cancelled 0.79 Est GFR ( Amer) Cancelled > 60 Est GFR (Non-Af Amer) Cancelled > 60 Glucose Cancelled 102 Lactic Acid Calcium Cancelled 8.0 L Magnesium Cancelled 2.2 Total Bilirubin Cancelled 0.8 AST Cancelled 33 Alkaline Phosphatase Cancelled 138 H Total Protein Cancelled 5.0 L Albumin Cancelled 3.0 L Stool for White Cells 05/26/19 05/26/19 05/27/19 18:50 20:10 07:39 WBC RBC Hgb Hct MCV MCH MCHC RDW Plt Count Seg Neutrophils % Lymphocytes % Monocytes % Eosinophils % Basophils % Absolute Neutrophils Absolute Lymphocytes Absolute Monocytes Absolute Eosinophils Absolute Basophils Sodium 146.4 H Potassium 4.8 D Chloride 119 H Carbon Dioxide 24 Anion Gap 4 L BUN 10 Creatinine 0.78 Est GFR ( Amer) > 60 Est GFR (Non-Af Amer) > 60 Glucose 72 L Lactic Acid 1.3 Calcium 6.6 L* Magnesium Total Bilirubin AST Alkaline Phosphatase Total Protein Albumin Stool for White Cells NO WBCs SEEN Impressions: Chest X-Ray 05/26/19 00:00 IMPRESSION: No evidence of acute cardiopulmonary disease. Head CT 05/26/19 19:17 IMPRESSION: 1. Involutional changes with chronic microvascular ischemia. 2. Surgical changes in the right frontal lobe. The overall appearance of this area is improved. 3. Possible large posterior fossa arachnoid cyst. EVIDENCE OF ACUTE STROKE: NO. Abdomen/Pelvis CT 05/27/19 08:59 IMPRESSION: SMALL PLEURAL EFFUSIONS. NO OTHER SIGNIFICANT OR ACUTE PROCESS IN THE ABDOMEN OR PELVIS. Assessment and Plan - Diagnosis (1) Dehydration Is this a current diagnosis for this admission?: Yes Plan: Continue IV fluids. (2) Hypokalemia Is this a current diagnosis for this admission?: Yes Plan: Secondary to GI losses. Repeat K. Will consider starting scheduled PO Potassium upon discharge. (3) Brain cancer Qualifiers: Malignant neoplasm of brain location: unspecified location Qualified Code(s): C71.9 - Malignant neoplasm of brain, unspecified Is this a current diagnosis for this admission?: Yes Plan: Follow-up with oncology outpatient. (4) HTN (hypertension) Qualifiers: Hypertension type: essential hypertension Qualified Code(s): I10 - Essential (primary) hypertension Is this a current diagnosis for this admission?: Yes - Time Time Spent with patient: 25-34 minutes
[2019-05-28] MEDS: RINGERS SOLUTION,LACTATED 1,000 ML IV PRN ×2 (01:04→18:56)
[2019-05-28 06:05] LABS: HEMATOCRIT 23.4 % (37.9-51.0); MEAN CORPUSCULAR HEMOGLOBIN 30.8 pg (27.0-33.4); MEAN CORPUSCULAR HGB CONC 31.8 g/dL (32.0-36.0); MEAN CORPUSCULAR VOLUME 97 fl (80-97); RED BLOOD COUNT 2.42 10^6/uL (4.35-5.55); RED CELL DISTRIBUTION WIDTH 20.1 % (11.5-14.0)
[2019-05-28 06:28] LABS: BLOOD UREA NITROGEN 9 mg/dL (7-20); CALCIUM 7.4 mg/dL (8.4-10.2); CHLORIDE 117 mmol/L (98-107); GLUCOSE 84 mg/dL (75-110); PLATELET COUNT 90 10^3/uL (150-450); WHITE BLOOD COUNT 2.1 10^3/uL (4.0-10.5)
[2019-05-28 06:34] LABS: CARBON DIOXIDE 27 mmol/L (22-30)
[2019-05-28 06:35] LABS: ANION GAP 4 (5-19)
[2019-05-28 06:46] LABS: ABSOLUTE LYMPHOCYTES# (MANUAL) 0.2 10^3/uL (0.5-4.7); ABSOLUTE MONOCYTES # (MANUAL) 0.1 10^3/uL (0.1-1.4); BAND NEUTROPHILS % (MANUAL) 2 % (3-5); BASOPHILS % (MANUAL) 0 % (0-2); EOSINOPHILS % (MANUAL) 0 % (0-6); LYMPHOCYTES % (MANUAL) 9 % (13-45); METAMYELOCYTES % (MANUAL) 1 % (0); MONOCYTES % (MANUAL) 6 % (3-13); SEGMENTED NEUTROPHILS % (MAN) 82 % (42-78); TOTAL CELLS COUNTED 100
[2019-05-28 06:48] LABS: ANISOCYTOSIS 2+; HYPOCHROMASIA 2+
[2019-05-28 06:50] LABS: PLATELET COMMENT DECREASED
[2019-05-28] MEDS: POTASSI CL 20 MEQ/50 ML RIDER 20 MEQ/50 ML RTUPB IV SCH ×2 (08:39→11:02)
[2019-05-28] MEDS: HYDROCORTISONE 10 MG TABLET PO SCH ×2 (08:55→22:00)
--- NOTE | 2019-05-28 16:59 | PDOC PROGRESS REPORT ---
Subjective Progress Note for:: 05/28/19 Subjective:: This is a 63 yr old male with a PMH of glioblastoma multiforme, prior craniotomy and on chemotherapy, chronic diarrhea possibly from chemo who was brought in due to increasing weakness, diarrhea and severe hypokalemia. 05/27: This morning, patient appeared weak but is easily arousable. She has had a few loose, nonbloody stools. He is coherent and is oriented to person and place. He denies chest pain or shortness of breath. 05/28: No acute event overnight. Patient is more awake and conversant this morning. Says he feels better today. He is oriented to person and place but not to time. He does continue to have loose stools. His potassium came back low again this morning. Reason For Visit: HOSPITAL ACQUIRED HYPOKALEMIA,HYPOCALCEMIA Physical Exam Vital Signs: Temp Pulse Resp BP Pulse Ox 98.8 F 102 H 18 113/88 H 96 05/28/19 15:14 05/28/19 15:14 05/28/19 15:14 05/28/19 15:14 05/28/19 15:14 Intake & Output 05/27/19 05/28/19 05/29/19 06:59 06:59 06:59 Intake Total 3150 2532 340 Balance 3150 2532 340 Weight 112 lb 10.499 oz 125 lb 7.088 oz General appearance: PRESENT: no acute distress, well-developed, well-nourished Head exam: PRESENT: atraumatic, normocephalic Eye exam: PRESENT: conjunctiva pink, EOMI, PERRLA. ABSENT: scleral icterus Ear exam: PRESENT: normal external ear exam Mouth exam: PRESENT: moist, tongue midline Neck exam: ABSENT: carotid bruit, JVD, lymphadenopathy, thyromegaly Respiratory exam: PRESENT: clear to auscultation leo. ABSENT: rales, rhonchi, wheezes Cardiovascular exam: PRESENT: RRR. ABSENT: diastolic murmur, rubs, systolic murmur Pulses: PRESENT: normal dorsalis pedis pul GI/Abdominal exam: PRESENT: normal bowel sounds, soft. ABSENT: distended, guarding, mass, organolmegaly, rebound, tenderness Rectal exam: PRESENT: deferred Extremities exam: PRESENT: full ROM. ABSENT: calf tenderness, clubbing, pedal edema Neurological exam: PRESENT: alert, awake, oriented to person, oriented to place, CN II-XII grossly intact. ABSENT: motor sensory deficit Results Laboratory Results: 05/28/19 05:43 05/28/19 05:43 05/28/19 05/28/19 05:43 05:43 WBC 2.1 L D RBC 2.42 L Hgb 7.4 L Hct 23.4 L MCV 97 MCH 30.8 MCHC 31.8 L RDW 20.1 H Plt Count 90 L Seg Neutrophils % Not Reportable Lymphocytes % Not Reportable Monocytes % Not Reportable Eosinophils % Not Reportable Basophils % Not Reportable Absolute Neutrophils Not Reportable Absolute Lymphocytes Not Reportable Absolute Monocytes Not Reportable Absolute Eosinophils Not Reportable Absolute Basophils Not Reportable Sodium 148.0 H Potassium 3.0 L* D Chloride 117 H Carbon Dioxide 27 Anion Gap 4 L BUN 9 Creatinine 0.71 Est GFR ( Amer) > 60 Est GFR (Non-Af Amer) > 60 Glucose 84 Calcium 7.4 L Impressions: Chest X-Ray 05/26/19 00:00 IMPRESSION: No evidence of acute cardiopulmonary disease. Head CT 05/26/19 19:17 IMPRESSION: 1. Involutional changes with chronic microvascular ischemia. 2. Surgical changes in the right frontal lobe. The overall appearance of this area is improved. 3. Possible large posterior fossa arachnoid cyst. EVIDENCE OF ACUTE STROKE: NO. Abdomen/Pelvis CT 05/27/19 08:59 IMPRESSION: SMALL PLEURAL EFFUSIONS. NO OTHER SIGNIFICANT OR ACUTE PROCESS IN THE ABDOMEN OR PELVIS. Assessment and Plan - Diagnosis (1) Dehydration Is this a current diagnosis for this admission?: Yes Plan: Continue IV fluids. (2) Hypokalemia Is this a current diagnosis for this admission?: Yes Plan: 05/28: We will replace potassium again this morning and will also start scheduled PO potassium. (3) Brain cancer Qualifiers: Malignant neoplasm of brain location: unspecified location Qualified Code(s): C71.9 - Malignant neoplasm of brain, unspecified Is this a current diagnosis for this admission?: Yes Plan: Follow-up with oncology outpatient. (4) HTN (hypertension) Qualifiers: Hypertension type: essential hypertension Qualified Code(s): I10 - Essential (primary) hypertension Is this a current diagnosis for this admission?: Yes - Time Time Spent with patient: 15-24 minutes
[2019-05-28] MEDS ORDERED: POTASSIUM CHLORIDE 10 MEQ CAPSULE.ER PO SCH (17:30)
[2019-05-28] MEDS: POTASSIUM CHLORIDE 20 MEQ PACKET PO SCH (18:53)
[2019-05-29] MEDS: HYDROCORTISONE 10 MG TABLET PO SCH ×2 (08:10→21:49)
[2019-05-29] MEDS: RINGERS SOLUTION,LACTATED 1,000 ML IV PRN (08:10)
[2019-05-29 09:40] LABS: HEMATOCRIT 25.1 % (37.9-51.0); MEAN CORPUSCULAR HEMOGLOBIN 30.5 pg (27.0-33.4); MEAN CORPUSCULAR HGB CONC 31.7 g/dL (32.0-36.0); MEAN CORPUSCULAR VOLUME 96 fl (80-97); PLATELET COUNT 117 10^3/uL (150-450); RED BLOOD COUNT 2.61 10^6/uL (4.35-5.55); RED CELL DISTRIBUTION WIDTH 20.2 % (11.5-14.0)
[2019-05-29 09:49] LABS: ANION GAP 5 (5-19); BLOOD UREA NITROGEN 9 mg/dL (7-20); CALCIUM 7.6 mg/dL (8.4-10.2); CARBON DIOXIDE 26 mmol/L (22-30); CHLORIDE 115 mmol/L (98-107); GLUCOSE 88 mg/dL (75-110); POTASSIUM 3.5 mmol/L (3.6-5.0)
[2019-05-29] MEDS: POTASSIUM CHLORIDE 20 MEQ PACKET PO SCH (09:54)
[2019-05-29 10:03] LABS: WHITE BLOOD COUNT 4.4 10^3/uL (4.0-10.5)
[2019-05-29 10:05] LABS: ABSOLUTE LYMPHOCYTES# (MANUAL) 0.5 10^3/uL (0.5-4.7); BAND NEUTROPHILS % (MANUAL) 2 % (3-5); BASOPHILS % (MANUAL) 0 % (0-2); EOSINOPHILS % (MANUAL) 1 % (0-6); LYMPHOCYTES % (MANUAL) 12 % (13-45); MONOCYTES % (MANUAL) 1 % (3-13); SEGMENTED NEUTROPHILS % (MAN) 84 % (42-78); TOTAL CELLS COUNTED 100
[2019-05-29 10:06] LABS: ANISOCYTOSIS 2+; PLATELET COMMENT DECREASED; POLYCHROMASIA SLIGHT
[2019-05-29 10:11] LABS: HEMOGLOBIN 7.4 g/dL (13.5-17.0)
--- NOTE | 2019-05-29 14:39 | RADIOLOGY REPORT (SQ) ---
EXAM DESCRIPTION: CHEST SINGLE VIEW COMPLETED DATE/TIME: 05/29/2019 9:14 am REASON FOR STUDY: Aspiration COMPARISON: 05/26/2019 TECHNIQUE: Single frontal radiographic view of the chest acquired. NUMBER OF VIEWS: One view. LIMITATIONS: None. FINDINGS: LUNGS AND PLEURA: No pneumothorax. No consolidation or pleural effusion. MEDIASTINUM AND HILAR STRUCTURES: Stable. HEART AND VASCULAR STRUCTURES: Stable. BONES: No acute findings. HARDWARE: None in the chest. OTHER: No other significant finding. IMPRESSION: NO ACUTE FINDINGS. TECHNICAL DOCUMENTATION: JOB ID: [id number] [id number] 2010 [employer]- All Rights Reserved Reading location - IP/workstation name: [employer]
[2019-05-29] MEDS: LEVETIRACETAM 500 MG TABLET PO SCH (18:25)
--- NOTE | 2019-05-29 19:06 | PDOC PROGRESS REPORT ---
Subjective Progress Note for:: 05/29/19 Subjective:: This is a 63 yr old male with a PMH of glioblastoma multiforme, prior craniotomy and on chemotherapy, chronic diarrhea possibly from chemo who was brought in due to increasing weakness, diarrhea and severe hypokalemia. 05/27: This morning, patient appeared weak but is easily arousable. She has had a few loose, nonbloody stools. He is coherent and is oriented to person and place. He denies chest pain or shortness of breath. 05/28: Patient is more awake and conversant this morning. Says he feels better today. He is oriented to person and place but not to time. He does continue to have loose stools. His potassium came back low again this morning. 05/29: No acute event overnight. Diarrhea has improved. Lovenox has been held due to his anemia and thrombocytopenia. No gross bleeding so far. He is more conversant today. He has episodes of in the 120. At rest. He is saturating well on room air. He does have prior IVC filter placement. says he has history of smoking he is before. Discussed consideration to proceed with CTA and wants to hold off on it for after discussing risk of MICHELLE. She is amenable to holding off on Lovenox for now. Reason For Visit: HOSPITAL ACQUIRED HYPOKALEMIA,HYPOCALCEMIA Physical Exam Vital Signs: Temp Pulse Resp BP Pulse Ox 97.3 F 106 H 18 123/95 H 98 05/29/19 11:50 05/29/19 14:00 05/29/19 11:50 05/29/19 11:50 05/29/19 11:50 Intake & Output 05/28/19 05/29/19 05/30/19 06:59 06:59 06:59 Intake Total 2532 1488 992 Balance 2532 1488 992 Weight 125 lb 7.088 oz 124 lb 12.506 oz General appearance: PRESENT: no acute distress, well-developed, well-nourished Head exam: PRESENT: atraumatic, normocephalic Eye exam: PRESENT: conjunctiva pink, EOMI, PERRLA. ABSENT: scleral icterus Ear exam: PRESENT: normal external ear exam Mouth exam: PRESENT: moist, tongue midline Neck exam: ABSENT: carotid bruit, JVD, lymphadenopathy, thyromegaly Respiratory exam: PRESENT: clear to auscultation leo. ABSENT: rales, rhonchi, wheezes Cardiovascular exam: PRESENT: RRR. ABSENT: diastolic murmur, rubs, systolic murmur Pulses: PRESENT: normal dorsalis pedis pul GI/Abdominal exam: PRESENT: normal bowel sounds, soft. ABSENT: distended, guarding, mass, organolmegaly, rebound, tenderness Rectal exam: PRESENT: deferred Neurological exam: PRESENT: alert, awake, oriented to person Results Laboratory Results: 05/29/19 09:26 05/29/19 15:19 05/28/19 05/29/19 05/29/19 05:43 09:26 09:26 WBC 4.4 D RBC 2.61 L Hgb 7.4 L 8.0 L Hct 25.1 L MCV 96 MCH 30.5 MCHC 31.7 L RDW 20.2 H Plt Count 117 L Seg Neutrophils % Not Reportable Lymphocytes % Not Reportable Monocytes % Not Reportable Eosinophils % Not Reportable Basophils % Not Reportable Absolute Neutrophils Not Reportable Absolute Lymphocytes Not Reportable Absolute Monocytes Not Reportable Absolute Eosinophils Not Reportable Absolute Basophils Not Reportable Sodium 145.8 H Potassium 3.5 L Chloride 115 H Carbon Dioxide 26 Anion Gap 5 BUN 9 Creatinine 0.67 Est GFR ( Amer) > 60 Est GFR (Non-Af Amer) > 60 Glucose 88 Calcium 7.6 L 05/29/19 15:19 WBC RBC Hgb Hct MCV MCH MCHC RDW Plt Count Seg Neutrophils % Lymphocytes % Monocytes % Eosinophils % Basophils % Absolute Neutrophils Absolute Lymphocytes Absolute Monocytes Absolute Eosinophils Absolute Basophils Sodium Potassium 4.0 Chloride Carbon Dioxide Anion Gap BUN Creatinine Est GFR ( Amer) Est GFR (Non-Af Amer) Glucose Calcium 05/26/19 18:50 Stool - Stool - Final Impressions: Head CT 05/26/19 19:17 IMPRESSION: 1. Involutional changes with chronic microvascular ischemia. 2. Surgical changes in the right frontal lobe. The overall appearance of this area is improved. 3. Possible large posterior fossa arachnoid cyst. EVIDENCE OF ACUTE STROKE: NO. Abdomen/Pelvis CT 05/27/19 08:59 IMPRESSION: SMALL PLEURAL EFFUSIONS. NO OTHER SIGNIFICANT OR ACUTE PROCESS IN THE ABDOMEN OR PELVIS. Chest X-Ray 05/29/19 00:00 IMPRESSION: NO ACUTE FINDINGS. Assessment and Plan - Diagnosis (1) Dehydration Is this a current diagnosis for this admission?: Yes Plan: Improved. (2) Hypokalemia Is this a current diagnosis for this admission?: Yes Plan: 05/28: We will replace potassium again this morning and will also start scheduled PO potassium. 05/29: Repleted. Will check cortisol. (3) Brain cancer Qualifiers: Malignant neoplasm of brain location: unspecified location Qualified Code(s): C71.9 - Malignant neoplasm of brain, unspecified Is this a current diagnosis for this admission?: Yes Plan: Follow-up with oncology outpatient. (4) HTN (hypertension) Qualifiers: Hypertension type: essential hypertension Qualified Code(s): I10 - Essential (primary) hypertension Is this a current diagnosis for this admission?: Yes (5) Anemia Is this a current diagnosis for this admission?: Yes Plan: Liekly chemo-induced. Will check an anemia panel and FOBT. Hold Lovenox for now. - Time Time Spent with patient: 25-34 minutes
[2019-05-30] MEDS: LEVETIRACETAM 500 MG TABLET PO SCH ×2 (05:09→17:22)
[2019-05-30 05:17] LABS: ABSOLUTE RETICS # 0.054 10^6/uL (0.028-0.122); RETICULOCYTE COUNT (AUTO) 2.17 % (0.66-2.85)
[2019-05-30 05:40] LABS: IRON(TIBC) < 10.1 ug/dL (49-181)
[2019-05-30 06:28] LABS: FOLATE 4.41 ng/mL (>2.76)
[2019-05-30] MEDS ORDERED: FERRIC CARBOXYMALTOSE INJ 750 MG/15 ML VIAL IV SCH (09:00)
[2019-05-30 09:40] LABS: ABSOLUTE EOSINOPHILS # (AUTO) 0.1 10^3/uL (0.0-0.6); ABSOLUTE LYMPHOCYTES (AUTO) 0.4 10^3/uL (0.5-4.7); ABSOLUTE MONOCYTES (AUTO) 0.2 10^3/uL (0.1-1.4); ABSOLUTE NEUT (AUTO) 3.4 10^3/uL (1.7-8.2); BASOPHILS % (AUTO) 0.5 % (0-2); EOSINOPHILS % (AUTO) 1.6 % (0-6); LYMPHOCYTES % (AUTO) 9.5 % (13-45); MEAN CORPUSCULAR HEMOGLOBIN 30.8 pg (27.0-33.4); MEAN CORPUSCULAR HGB CONC 32.1 g/dL (32.0-36.0); MEAN CORPUSCULAR VOLUME 96 fl (80-97); PLATELET COUNT 114 10^3/uL (150-450); RED BLOOD COUNT 2.51 10^6/uL (4.35-5.55); RED CELL DISTRIBUTION WIDTH 20.5 % (11.5-14.0); SEGMENTED NEUTROPHILS % (AUTO) 83.4 % (42-78); TOTAL CELLS COUNTED % (AUTO) 100 %; WHITE BLOOD COUNT 4.1 10^3/uL (4.0-10.5)
[2019-05-30 09:43] LABS: BLOOD UREA NITROGEN 10 mg/dL (7-20); CALCIUM 7.4 mg/dL (8.4-10.2); CARBON DIOXIDE 27 mmol/L (22-30); GLUCOSE 135 mg/dL (75-110); HEMOGLOBIN 7.7 g/dL (13.5-17.0); POTASSIUM 3.6 mmol/L (3.6-5.0)
[2019-05-30 09:48] LABS: CHLORIDE 113 mmol/L (98-107)
[2019-05-30] MEDS ORDERED: NORMAL SALINE 250 ML IV PRN ×2 (09:54)
[2019-05-30 09:57] LABS: ANION GAP 4 (5-19)
[2019-05-30] MEDS: HYDROCORTISONE 10 MG TABLET PO SCH ×2 (09:59→22:11)
[2019-05-30] MEDS: FERROUS SULFATE LIQUID 300 MG/5 ML UDC PO SCH ×2 (09:59→17:22)
[2019-05-30] MEDS: POTASSIUM CHLORIDE 20 MEQ PACKET PO SCH (09:59)
[2019-05-30] MEDS: ENOXAPARIN SODIUM INJ 40 MG/0.4 ML DISP.SYRIN SUBCUT SCH (09:59)
[2019-05-30] MEDS ORDERED: TEMOZOLOMIDE PO SCH ×2 (10:00)
[2019-05-30] MEDS ORDERED: FERRIC CARBOXYMALTOSE 750 MG in NORMAL SALINE 250 ML IV ONE (10:30)
--- NOTE | 2019-05-30 11:35 | EKG REPORT ---
SEVERITY:- ABNORMAL ECG - SINUS TACHYCARDIA MULTIPLE PREMATURE COMPLEXES, SUPRAVENTRICULAR RIGHT BUNDLE BRANCH BLOCK : Confirmed by: Letty Saldana 30-May-2019 11:34:23
[2019-05-30] MEDS ORDERED: ACETAMINOPHEN 325 MG TABLET PO PRN (12:00)
[2019-05-30] MEDS ORDERED: DIPHENHYDRAMINE HCL 50 MG/ML VIAL IV PRN (12:00)
--- NOTE | 2019-05-30 12:00 | PDOC CONSULTATION ---
Consultation Consult Date: 05/30/19 Attending physician:: BEAR KELLOGG Provider Consulted: LARRY TIPTON Consult reason:: Patient with known history of GBM, here with weakness, diarrhea dehydration History of Present Illness Admission Date/PCP: 05/28/19 14:37 PAULO SUMMERS MD Patient complains of: Weakness, dehydration diarrhea History of Present Illness: CHERRIE BIRD is a 63 year old male with known history of GBM, he was originall y diagnosed in 2017 and went to [facility] and had a right frontal lobe craniotomy, he underwent concurrent chemoradiation with Temodar and then completed a course of maintenance Temodar, this was completed in 2017. Thereafter he was monitored off therapy. And in 11/2018 he had new brain lesions apart from the frontal area, as well as a few satellite lesions, and he was started on Irinotecan plus Avastin. Of note, he has been followed by the [facility], [facility], Dr. Zimmerman, Along with Dr. Summers locally. We have been consulted because Dr. Summers is closing her office and they would like to transition care. He recently went back to [facility] just about 3 weeks ago and had MRI of the brain, the tells me that radiology felt like there may have been some progression of disease however neuro-oncology read the images and felt actually like the disease was improving and stabilized with therapy, he is getting chemotherapy with both of those drugs every 2 weeks. He is due this coming Friday for treatment. She tells me over the last 3 to 4 weeks has been increasingly weaker, having more diarrhea, ultimately was found to be hyponatremic as well as hypokalemic, and recommended to be admitted to [facility]. At home however, he is mostly bedbound, but he is able to get up with assistance and sits on the couch for a period of time during every day, his mental status has been confused at times and that is his baseline but he has been able to at least interact more at home than he has been here. Past Medical History Cardiac Medical History: Reports: DVT, Hyperlipidema, Hypertension Malignancy Medical History: Reports: Brain Cancer GI Medical History: Reports: Gastroesophageal Reflux Disease Hematology: Reports: Bleeding Tendencies Past Surgical History Past Surgical History: Reports: Herniorrhaphy, Other - craniotomy Social History Information Source: Patient Lives with: Family Smoking Status: Former Smoker Frequency of Alcohol Use: None Hx Recreational Drug Use: No Drugs: None Hx Prescription Drug Abuse: No - Advance Directive Resuscitation Status: Full Code Family History Family History: Reviewed & Not Pertinent, Malignancy Parental Family History Reviewed: Yes Children Family History Reviewed: Yes Sibling(s) Family History Reviewed.: Yes Medication/Allergy Home Medications: Acetaminophen [Tylenol 325 mg Tablet] 650 mg PO Q6HP PRN 05/27/19 Dexamethasone [Decadron 4 mg Tablet] 4 mg PO ASDIR PRN 05/27/19 Levetiracetam [Keppra] 500 mg PO BID 05/27/19 Omeprazole 40 mg PO DAILY 05/27/19 Ondansetron HCl [Zofran] 8 mg PO Q8HP PRN 05/27/19 Oxycodone HCl [Oxy-Ir 5 mg Tablet] 5 mg PO Q4HP PRN 05/27/19 Sulfamethoxazole/Trimethoprim [Bactrim 400-80 mg Tablet] 1 each PO Q12H 05/27/19 Temozolomide [Temodar] 10 mg PO DAILY 05/27/19 Temozolomide [Temodar] 80 mg PO DAILY 05/27/19 Loperamide HCl [Imodium 2 mg Capsule] 2 mg PO Q6HP PRN #20 capsule 05/29/19 Potassium Chloride [Potassium Chloride 20 Meq Packet] 20 meq PO DAILY #7 packet 05/29/19 Enoxaparin Sodium [Lovenox Inj 40 mg/0.4 ml Disp.syrin] 40 mg SUBCUT DAILY disp.syrin 05/30/19 Ferrous Sulfate [Ferrous Sulfate Liquid 300 mg/5 ml Udcup] 300 mg PO BID #60 udc 05/30/19 Hydrocortisone [Cortef 10 mg Tablet] 20 mg PO QHS tablet 05/30/19 Hydrocortisone [Cortef 10 mg Tablet] 30 mg PO QAM tablet 05/30/19 Allergies/Adverse Reactions: Penicillins Allergy (Unknown, Verified 05/26/19 16:36) Blisters Review of Systems Constitutional: ABSENT: chills, fever(s), headache(s), weight gain, weight loss Eyes: ABSENT: visual disturbances Ears: ABSENT: hearing changes Cardiovascular: ABSENT: chest pain, dyspnea on exertion, edema, orthropnea, palpitations Respiratory: ABSENT: cough, hemoptysis Gastrointestinal: ABSENT: abdominal pain, constipation, diarrhea, hematemesis, hematochezia, nausea, vomiting Genitourinary: ABSENT: dysuria, hematuria Musculoskeletal: ABSENT: joint swelling Integumentary: ABSENT: rash, wounds Neurological: ABSENT: abnormal gait, abnormal speech, confusion, dizziness, focal weakness, syncope Psychiatric: ABSENT: anxiety, depression, homidical ideation, suicidal ideation Endocrine: ABSENT: cold intolerance, heat intolerance, polydipsia, polyuria Hematologic/Lymphatic: ABSENT: easy bleeding, easy bruising Physical Exam Vital Signs: Temp Pulse Resp BP Pulse Ox 98.5 F 109 H 20 110/80 92 05/30/19 07:57 05/30/19 07:57 05/30/19 07:57 05/30/19 07:57 05/30/19 07:57 Intake & Output 05/29/19 05/30/19 05/31/19 06:59 06:59 06:59 Intake Total 1488 1142 1265 Balance 1488 1142 1265 Weight 56.6 kg 56.5 kg General appearance: PRESENT: no acute distress, well-developed, well-nourished Head exam: PRESENT: atraumatic, normocephalic Eye exam: PRESENT: conjunctiva pink, EOMI, PERRLA. ABSENT: scleral icterus Ear exam: PRESENT: normal external ear exam Mouth exam: PRESENT: moist, tongue midline Neck exam: ABSENT: carotid bruit, JVD, lymphadenopathy, thyromegaly Respiratory exam: PRESENT: clear to auscultation leo. ABSENT: rales, rhonchi, wheezes Cardiovascular exam: PRESENT: RRR. ABSENT: diastolic murmur, rubs, systolic murmur Pulses: PRESENT: normal dorsalis pedis pul Vascular exam: PRESENT: normal capillary refill GI/Abdominal exam: PRESENT: normal bowel sounds, soft. ABSENT: distended, guarding, mass, organolmegaly, rebound, tenderness Rectal exam: PRESENT: deferred Extremities exam: PRESENT: full ROM. ABSENT: calf tenderness, clubbing, pedal edema Neurological exam: PRESENT: alert, awake, oriented to person, oriented to place, oriented to time, oriented to situation, CN II-XII grossly intact. ABSENT: motor sensory deficit Psychiatric exam: PRESENT: appropriate affect, normal mood. ABSENT: homicidal ideation, suicidal ideation Skin exam: PRESENT: dry, intact, warm. ABSENT: cyanosis, rash Results Laboratory Results: 05/30/19 04:54 05/30/19 04:54 05/29/19 05/29/19 05/30/19 15:19 18:05 04:54 WBC RBC Hgb Hct MCV MCH MCHC RDW Plt Count Seg Neutrophils % Lymphocytes % Monocytes % Eosinophils % Basophils % Absolute Neutrophils Absolute Lymphocytes Absolute Monocytes Absolute Eosinophils Absolute Basophils Retic Count (auto) Absolute Retic Sodium Potassium 4.0 Chloride Carbon Dioxide Anion Gap BUN Creatinine Est GFR ( Amer) Est GFR (Non-Af Amer) Glucose Calcium Iron TIBC % Saturation Ferritin Vitamin B12 Folate TSH 0.95 Stool Occult Blood NEGATIVE Blood Type Antibody Screen 05/30/19 05/30/19 05/30/19 04:54 04:54 04:54 WBC 4.1 RBC 2.51 L Hgb 7.7 L Hct 24.0 L MCV 96 MCH 30.8 MCHC 32.1 RDW 20.5 H Plt Count 114 L Seg Neutrophils % 83.4 H Lymphocytes % 9.5 L Monocytes % 5.0 Eosinophils % 1.6 Basophils % 0.5 Absolute Neutrophils 3.4 Absolute Lymphocytes 0.4 L Absolute Monocytes 0.2 Absolute Eosinophils 0.1 Absolute Basophils 0.0 Retic Count (auto) 2.17 Absolute Retic 0.054 Sodium Potassium Chloride Carbon Dioxide Anion Gap BUN Creatinine Est GFR ( Amer) Est GFR (Non-Af Amer) Glucose Calcium Iron < 10.1 L TIBC 149 L % Saturation UNABLE TO CALCULATE Ferritin 650.00 H Vitamin B12 > 1000.0 H Folate 4.41 TSH Stool Occult Blood Blood Type Antibody Screen 05/30/19 05/30/19 04:54 10:25 WBC RBC Hgb Hct MCV MCH MCHC RDW Plt Count Seg Neutrophils % Lymphocytes % Monocytes % Eosinophils % Basophils % Absolute Neutrophils Absolute Lymphocytes Absolute Monocytes Absolute Eosinophils Absolute Basophils Retic Count (auto) Absolute Retic Sodium 143.5 Potassium 3.6 Chloride 113 H Carbon Dioxide 27 Anion Gap 4 L BUN 10 Creatinine 0.69 Est GFR ( Amer) > 60 Est GFR (Non-Af Amer) > 60 Glucose 135 H Calcium 7.4 L Iron TIBC % Saturation Ferritin Vitamin B12 Folate TSH Stool Occult Blood Blood Type O NEGATIVE Antibody Screen NEGATIVE 05/26/19 18:50 Stool - Stool - Final 05/26/19 18:50 Stool - Stool Stool Culture - Final NO SALMONELLA, SHIGELLA, CAMPYLOBACTER, OR E.COLI 0157 RECOVERED. NEGATIVE FOR SHIGA TOXINS 1&2. Impressions: Head CT 05/26/19 19:17 IMPRESSION: 1. Involutional changes with chronic microvascular ischemia. 2. Surgical changes in the right frontal lobe. The overall appearance of this area is improved. 3. Possible large posterior fossa arachnoid cyst. EVIDENCE OF ACUTE STROKE: NO. Abdomen/Pelvis CT 05/27/19 08:59 IMPRESSION: SMALL PLEURAL EFFUSIONS. NO OTHER SIGNIFICANT OR ACUTE PROCESS IN THE ABDOMEN OR PELVIS. Chest X-Ray 05/29/19 00:00 IMPRESSION: NO ACUTE FINDINGS. Assessment & Plan - Diagnosis (1) Anemia Qualifiers: Anemia type: bone marrow failure Bone marrow failure anemia type: pancytopenia, antineoplastic chemotherapy-induced Qualified Code(s): D61.810 - Antineoplastic chemotherapy induced pancytopenia; T45.1X5A - Adverse effect of antineoplastic and immunosuppressive drugs, initial encounter Is this a current diagnosis for this admission?: Yes Plan: Anemia secondary to chemotherapy, plan to transfuse 2 units of packed red blood cells today, this may be contributing to his mental status issues. (2) Brain cancer Qualifiers: Malignant neoplasm of brain location: frontal lobe Qualified Code(s): C71.1 - Malignant neoplasm of frontal lobe Is this a current diagnosis for this admission?: Yes Plan: He has been stable on CPT-11 plus Avastin, and the plan is to continue this as an outpatient. He was due for treatment this week but he needs to get at least back to baseline. But his baseline was mostly bedbound and assisted care. His and son are able to care for him with home health at home. They would like to get him back to baseline if possible. We will continue with hydration here and continue with physical therapy as tolerated. - Time Time Spent: Greater than 70 Minutes - Inpatient Certification Based on my medical assessment, after consideration of the patient's comorbidities, presenting symptoms, or acuity I expect that the services needed warrant INPATIENT care.: Yes I certify that my determination is in accordance with my understanding of Medicare's requirements for reasonable and necessary INPATIENT services [42 CFR 412.3e].: Yes Medical Necessity: Need For IV Fluids, Need for Neurological Checks, Risk of Complication if Not Cared For in Hospital
--- NOTE | 2019-05-30 16:08 | PDOC PROGRESS REPORT ---
Subjective Progress Note for:: 05/30/19 Subjective:: This is a 63 yr old male with a PMH of glioblastoma multiforme, prior craniotomy and on chemotherapy, chronic diarrhea possibly from chemo who was brought in due to increasing weakness, diarrhea and severe hypokalemia. 05/27: This morning, patient appeared weak but is easily arousable. She has had a few loose, nonbloody stools. He is coherent and is oriented to person and place. He denies chest pain or shortness of breath. 05/28: Patient is more awake and conversant this morning. Says he feels better today. He is oriented to person and place but not to time. He does continue to have loose stools. His potassium came back low again this morning. 05/29: Diarrhea has improved. Lovenox has been held due to his anemia and thrombocytopenia. No gross bleeding so far. He is more conversant today. He has episodes of in the 120. At rest. He is saturating well on room air. He does have prior IVC filter placement. says he has history of smoking he is before. Discussed consideration to proceed with CTA and wants to hold off on it for after discussing risk of MICHELLE. She is amenable to holding off on Lovenox for now. 05/30: No acute event overnight. Denies acute complaints. 1 u of pRBC ordered for his low Hb. Hematology ordered a 2nd unit of pRBC. Reason For Visit: HOSPITAL ACQUIRED HYPOKALEMIA,HYPOCALCEMIA Physical Exam Vital Signs: Temp Pulse Resp BP Pulse Ox 98.9 F 95 18 119/70 93 05/30/19 11:20 05/30/19 11:20 05/30/19 11:20 05/30/19 11:20 05/30/19 11:20 Intake & Output 05/29/19 05/30/19 05/31/19 06:59 06:59 06:59 Intake Total 1488 1142 1365 Balance 1488 1142 1365 Weight 124 lb 12.506 oz 124 lb 8.979 oz General appearance: PRESENT: no acute distress, thin Head exam: PRESENT: atraumatic, normocephalic Eye exam: PRESENT: conjunctiva pink, EOMI, PERRLA. ABSENT: scleral icterus Ear exam: PRESENT: normal external ear exam Mouth exam: PRESENT: moist, tongue midline Neck exam: ABSENT: carotid bruit, JVD, lymphadenopathy, thyromegaly Respiratory exam: PRESENT: clear to auscultation leo. ABSENT: rales, rhonchi, wheezes Cardiovascular exam: PRESENT: RRR. ABSENT: diastolic murmur, rubs, systolic murmur Pulses: PRESENT: normal dorsalis pedis pul GI/Abdominal exam: PRESENT: normal bowel sounds, soft. ABSENT: distended, guarding, mass, organolmegaly, rebound, tenderness Rectal exam: PRESENT: deferred Neurological exam: PRESENT: alert, awake, oriented to person, oriented to place Results Laboratory Results: 05/30/19 04:54 05/30/19 04:54 05/29/19 05/29/19 05/30/19 15:19 18:05 04:54 WBC RBC Hgb Hct MCV MCH MCHC RDW Plt Count Seg Neutrophils % Lymphocytes % Monocytes % Eosinophils % Basophils % Absolute Neutrophils Absolute Lymphocytes Absolute Monocytes Absolute Eosinophils Absolute Basophils Retic Count (auto) Absolute Retic Sodium Potassium 4.0 Chloride Carbon Dioxide Anion Gap BUN Creatinine Est GFR ( Amer) Est GFR (Non-Af Amer) Glucose Calcium Iron TIBC % Saturation Ferritin Vitamin B12 Folate TSH 0.95 Stool Occult Blood NEGATIVE Blood Type Antibody Screen 05/30/19 05/30/19 05/30/19 04:54 04:54 04:54 WBC 4.1 RBC 2.51 L Hgb 7.7 L Hct 24.0 L MCV 96 MCH 30.8 MCHC 32.1 RDW 20.5 H Plt Count 114 L Seg Neutrophils % 83.4 H Lymphocytes % 9.5 L Monocytes % 5.0 Eosinophils % 1.6 Basophils % 0.5 Absolute Neutrophils 3.4 Absolute Lymphocytes 0.4 L Absolute Monocytes 0.2 Absolute Eosinophils 0.1 Absolute Basophils 0.0 Retic Count (auto) 2.17 Absolute Retic 0.054 Sodium Potassium Chloride Carbon Dioxide Anion Gap BUN Creatinine Est GFR ( Amer) Est GFR (Non-Af Amer) Glucose Calcium Iron < 10.1 L TIBC 149 L % Saturation UNABLE TO CALCULATE Ferritin 650.00 H Vitamin B12 > 1000.0 H Folate 4.41 TSH Stool Occult Blood Blood Type Antibody Screen 05/30/19 05/30/19 04:54 10:25 WBC RBC Hgb Hct MCV MCH MCHC RDW Plt Count Seg Neutrophils % Lymphocytes % Monocytes % Eosinophils % Basophils % Absolute Neutrophils Absolute Lymphocytes Absolute Monocytes Absolute Eosinophils Absolute Basophils Retic Count (auto) Absolute Retic Sodium 143.5 Potassium 3.6 Chloride 113 H Carbon Dioxide 27 Anion Gap 4 L BUN 10 Creatinine 0.69 Est GFR ( Amer) > 60 Est GFR (Non-Af Amer) > 60 Glucose 135 H Calcium 7.4 L Iron TIBC % Saturation Ferritin Vitamin B12 Folate TSH Stool Occult Blood Blood Type O NEGATIVE Antibody Screen NEGATIVE 05/26/19 18:50 Stool - Stool - Final 05/26/19 18:50 Stool - Stool Stool Culture - Final NO SALMONELLA, SHIGELLA, CAMPYLOBACTER, OR E.COLI 0157 RECOVERED. NEGATIVE FOR SHIGA TOXINS 1&2. Impressions: Head CT 05/26/19 19:17 IMPRESSION: 1. Involutional changes with chronic microvascular ischemia. 2. Surgical changes in the right frontal lobe. The overall appearance of this area is improved. 3. Possible large posterior fossa arachnoid cyst. EVIDENCE OF ACUTE STROKE: NO. Abdomen/Pelvis CT 05/27/19 08:59 IMPRESSION: SMALL PLEURAL EFFUSIONS. NO OTHER SIGNIFICANT OR ACUTE PROCESS IN THE ABDOMEN OR PELVIS. Chest X-Ray 05/29/19 00:00 IMPRESSION: NO ACUTE FINDINGS. Assessment and Plan - Diagnosis (1) Dehydration Is this a current diagnosis for this admission?: Yes Plan: Improved. (2) Hypokalemia Is this a current diagnosis for this admission?: Yes Plan: 05/28: We will replace potassium again this morning and will also start scheduled PO potassium. 05/29: Repleted. (3) Brain cancer Qualifiers: Malignant neoplasm of brain location: frontal lobe Qualified Code(s): C71.1 - Malignant neoplasm of frontal lobe Is this a current diagnosis for this admission?: Yes Plan: Follow-up with oncology outpatient. (4) HTN (hypertension) Qualifiers: Hypertension type: essential hypertension Qualified Code(s): I10 - Essential (primary) hypertension Is this a current diagnosis for this admission?: Yes (5) Anemia Qualifiers: Anemia type: bone marrow failure Bone marrow failure anemia type: pancytope nii, antineoplastic chemotherapy-induced Qualified Code(s): D61.810 - Ant ineoplastic chemotherapy induced pancytopenia; T45.1X5A - Adverse effect of antineoplastic and immunosuppressive drugs, initial encounter Is this a current diagnosis for this admission?: Yes Plan: Likely chemo-induced. FOBT negative. Iron is low. Will order Injectafer. 1 u of pRBC ordered. Hematology ordered a 2nd unit of pRBC. - Time Time Spent with patient: 15-24 minutes
[2019-05-31 05:28] LABS: ABSOLUTE EOSINOPHILS # (AUTO) 0.1 10^3/uL (0.0-0.6); ABSOLUTE LYMPHOCYTES (AUTO) 0.7 10^3/uL (0.5-4.7); ABSOLUTE MONOCYTES (AUTO) 0.7 10^3/uL (0.1-1.4); ABSOLUTE NEUT (AUTO) 8.4 10^3/uL (1.7-8.2); BASOPHILS % (AUTO) 0.2 % (0-2); EOSINOPHILS % (AUTO) 1.4 % (0-6); HEMATOCRIT 35.1 % (37.9-51.0); LYMPHOCYTES % (AUTO) 7.3 % (13-45); MEAN CORPUSCULAR HEMOGLOBIN 29.4 pg (27.0-33.4); MEAN CORPUSCULAR HGB CONC 32.7 g/dL (32.0-36.0); MONOCYTES % (AUTO) 6.9 % (3-13); PLATELET COUNT 125 10^3/uL (150-450); SEGMENTED NEUTROPHILS % (AUTO) 84.2 % (42-78); TOTAL CELLS COUNTED % (AUTO) 100 %
[2019-05-31] MEDS: LEVETIRACETAM 500 MG TABLET PO SCH ×2 (05:30→05:37)
[2019-05-31 06:05] LABS: MEAN CORPUSCULAR VOLUME 90 fl (80-97); WHITE BLOOD COUNT 9.9 10^3/uL (4.0-10.5)
[2019-05-31 06:06] LABS: HEMOGLOBIN 11.5 g/dL (13.5-17.0)
[2019-05-31] MEDS: HYDROCORTISONE 10 MG TABLET PO SCH (07:55)
--- NOTE | 2019-05-31 08:33 | PDOC PROGRESS REPORT ---
Subjective Progress Note for:: 05/31/19 Subjective:: Pt seems more awake and alert, interested in standing and getting up to a chair. Reason For Visit: HOSPITAL ACQUIRED HYPOKALEMIA,HYPOCALCEMIA Physical Exam Vital Signs: Temp Pulse Resp BP Pulse Ox 98.6 F 86 18 125/86 H 94 05/31/19 08:00 05/31/19 08:00 05/31/19 08:00 05/31/19 08:00 05/31/19 08:00 Intake & Output 05/30/19 05/31/19 06/01/19 06:59 06:59 06:59 Intake Total 1142 2516 Balance 1142 2516 Weight 56.5 kg 58.1 kg General appearance: PRESENT: no acute distress, well-developed, well-nourished Head exam: PRESENT: atraumatic, normocephalic Eye exam: PRESENT: conjunctiva pink, EOMI, PERRLA. ABSENT: scleral icterus Ear exam: PRESENT: normal external ear exam Mouth exam: PRESENT: moist, tongue midline Neck exam: ABSENT: carotid bruit, JVD, lymphadenopathy, thyromegaly Respiratory exam: PRESENT: clear to auscultation leo. ABSENT: rales, rhonchi, wheezes Cardiovascular exam: PRESENT: RRR. ABSENT: diastolic murmur, rubs, systolic murmur Pulses: PRESENT: normal dorsalis pedis pul Vascular exam: PRESENT: normal capillary refill GI/Abdominal exam: PRESENT: normal bowel sounds, soft. ABSENT: distended, guarding, mass, organolmegaly, rebound, tenderness Rectal exam: PRESENT: deferred Extremities exam: PRESENT: full ROM. ABSENT: calf tenderness, clubbing, pedal edema Neurological exam: PRESENT: alert, awake, oriented to person, oriented to place, oriented to time, oriented to situation, CN II-XII grossly intact. ABSENT: motor sensory deficit Psychiatric exam: PRESENT: appropriate affect, normal mood. ABSENT: homicidal ideation, suicidal ideation Skin exam: PRESENT: dry, intact, warm. ABSENT: cyanosis, rash Results Laboratory Results: 05/31/19 04:28 05/30/19 04:54 05/30/19 05/30/19 05/30/19 04:54 04:54 10:25 WBC 4.1 RBC 2.51 L Hgb 7.7 L Hct 24.0 L MCV 96 MCH 30.8 MCHC 32.1 RDW 20.5 H Plt Count 114 L Seg Neutrophils % 83.4 H Lymphocytes % 9.5 L Monocytes % 5.0 Eosinophils % 1.6 Basophils % 0.5 Absolute Neutrophils 3.4 Absolute Lymphocytes 0.4 L Absolute Monocytes 0.2 Absolute Eosinophils 0.1 Absolute Basophils 0.0 Sodium 143.5 Potassium 3.6 Chloride 113 H Carbon Dioxide 27 Anion Gap 4 L BUN 10 Creatinine 0.69 Est GFR ( Amer) > 60 Est GFR (Non-Af Amer) > 60 Glucose 135 H Calcium 7.4 L Blood Type O NEGATIVE Antibody Screen NEGATIVE 05/31/19 04:28 WBC 9.9 D RBC 3.90 L Hgb 11.5 L D Hct 35.1 L MCV 90 D MCH 29.4 MCHC 32.7 RDW 21.0 H Plt Count 125 L Seg Neutrophils % 84.2 H Lymphocytes % 7.3 L Monocytes % 6.9 Eosinophils % 1.4 Basophils % 0.2 Absolute Neutrophils 8.4 H Absolute Lymphocytes 0.7 Absolute Monocytes 0.7 Absolute Eosinophils 0.1 Absolute Basophils 0.0 Sodium Potassium Chloride Carbon Dioxide Anion Gap BUN Creatinine Est GFR ( Amer) Est GFR (Non-Af Amer) Glucose Calcium Blood Type Antibody Screen Impressions: Head CT 05/26/19 19:17 IMPRESSION: 1. Involutional changes with chronic microvascular ischemia. 2. Surgical changes in the right frontal lobe. The overall appearance of this area is improved. 3. Possible large posterior fossa arachnoid cyst. EVIDENCE OF ACUTE STROKE: NO. Abdomen/Pelvis CT 05/27/19 08:59 IMPRESSION: SMALL PLEURAL EFFUSIONS. NO OTHER SIGNIFICANT OR ACUTE PROCESS IN THE ABDOMEN OR PELVIS. Chest X-Ray 05/29/19 00:00 IMPRESSION: NO ACUTE FINDINGS. Assessment & Plan - Diagnosis (1) Anemia Qualifiers: Anemia type: bone marrow failure Bone marrow failure anemia type: pancytopenia, antineoplastic chemotherapy-induced Qualified Code(s): D61.810 - Antineoplastic chemotherapy induced pancytopenia; T45.1X5A - Adverse effect of antineoplastic and immunosuppressive drugs, initial encounter Is this a current diagnosis for this admission?: Yes Plan: Hemoglobin improved to 11. Probably secondary to anemia of chronic disease/antineoplastic therapy. (2) Brain cancer Qualifiers: Malignant neoplasm of brain location: frontal lobe Qualified Code(s): C71.1 - Malignant neoplasm of frontal lobe Is this a current diagnosis for this admission?: Yes Plan: Mentation improved, probably in part related to the low hemoglobin.
[2019-05-31] MEDS: POTASSIUM CHLORIDE 20 MEQ PACKET PO SCH (10:18)
[2019-05-31] MEDS: ENOXAPARIN SODIUM INJ 40 MG/0.4 ML DISP.SYRIN SUBCUT SCH (10:18)
[2019-05-31] MEDS: FERROUS SULFATE LIQUID 300 MG/5 ML UDC PO SCH (10:19)
--- NOTE | 2019-05-31 16:34 | PDOC DISCHARGE SUMMARY ---
General - Admit/Disc Date/PCP Admission Date/Primary Care Provider: 05/28/19 14:37 PAULO SUMMERS MD Discharge Date: 05/31/19 - Discharge Diagnosis (1) Dehydration Is this a current diagnosis for this admission?: Yes (2) Hypokalemia Is this a current diagnosis for this admission?: Yes (3) Brain cancer Is this a current diagnosis for this admission?: Yes (4) HTN (hypertension) Is this a current diagnosis for this admission?: Yes (5) Anemia Is this a current diagnosis for this admission?: Yes - Additional Information Resuscitation Status: Full Code Prescriptions: Ferrous Sulfate [Ferrous Sulfate Liquid 300 mg/5 ml Udcup] 300 mg PO BID #60 udc Loperamide HCl [Imodium 2 mg Capsule] 2 mg PO Q6HP PRN #20 capsule PRN Reason: Potassium Chloride [Potassium Chloride 20 Meq Packet] 20 meq PO DAILY #7 packet Home Medications: Acetaminophen [Tylenol 325 mg Tablet] 650 mg PO Q6HP PRN 05/27/19 Dexamethasone [Decadron 4 mg Tablet] 4 mg PO ASDIR PRN 05/27/19 Levetiracetam [Keppra] 500 mg PO BID 05/27/19 Omeprazole 40 mg PO DAILY 05/27/19 Ondansetron HCl [Zofran] 8 mg PO Q8HP PRN 05/27/19 Oxycodone HCl [Oxy-Ir 5 mg Tablet] 5 mg PO Q4HP PRN 05/27/19 Sulfamethoxazole/Trimethoprim [Bactrim 400-80 mg Tablet] 1 each PO Q12H 05/27/19 Temozolomide [Temodar] 10 mg PO DAILY 05/27/19 Temozolomide [Temodar] 80 mg PO DAILY 05/27/19 Loperamide HCl [Imodium 2 mg Capsule] 2 mg PO Q6HP PRN #20 capsule 05/29/19 Potassium Chloride [Potassium Chloride 20 Meq Packet] 20 meq PO DAILY #7 packet 05/29/19 Enoxaparin Sodium [Lovenox Inj 40 mg/0.4 ml Disp.syrin] 40 mg SUBCUT DAILY disp.syrin 05/30/19 Ferrous Sulfate [Ferrous Sulfate Liquid 300 mg/5 ml Udcup] 300 mg PO BID #60 udc 05/30/19 Hydrocortisone [Cortef 10 mg Tablet] 20 mg PO QHS tablet 05/30/19 Hydrocortisone [Cortef 10 mg Tablet] 30 mg PO QAM tablet 05/30/19 History of Present Illness History of Present Illness: Admitting hospitalist's H&P: CHERRIE BIRD is a 63 year old male with a history of glioblastoma multiforme has had surgery and has been on chemotherapy, which he continues on currently, and he presents to the ER after being sent over by his oncologist for a low potassium. The chemo that he is on causes diarrhea, and they normally give it with a dose of an antidiarrheal medication, but he still has some diarrhea inter mittently. He primarily says he just feels a little bit weak. He does not feel nauseated. His is been giving him some Lomotil at home but he still had a little bit of loose stool. His potassium was low at 3, but they gave him some IV fluids and it dropped down to 2.6 afterwards. His magnesium is normal. He has no other substantial metabolic derangements. He is being admitted for observation to give him some IV potassium. Hospital Course Hospital Course: This is a 63 yr old male with a PMH of glioblastoma multiforme, prior craniotomy and on chemotherapy, chronic diarrhea possibly from chemo who was brought in due to increasing weakness, diarrhea and severe hypokalemia. Patient's potassium was repleted. He was also started on IV fluids. C. difficile was negative. He has chronic diarrhea related to his chemotherapy. He also got 2 units of packed RBC transfusion per hematology recommendations. He was also given an iron infusion and was started on ferrous sulfate. Patient did improve and return to his baseline. He does have prior IVC filter placement. His says he does have a history of DVT. He is on Lovenox at home. Dis cussed with hematology who recommend continuing Lovenox injections at home. Physical Exam Vital Signs: Temp Pulse Resp BP Pulse Ox 98.4 F 84 18 130/80 H 96 05/31/19 12:00 05/31/19 12:00 05/31/19 12:00 05/31/19 12:00 05/31/19 12:00 Intake & Output 05/30/19 05/31/19 06/01/19 06:59 06:59 06:59 Intake Total 1142 2516 Balance 1142 2516 Weight 124 lb 8.979 oz 128 lb 1.417 oz General appearance: PRESENT: no acute distress, thin Head exam: PRESENT: atraumatic, normocephalic Eye exam: PRESENT: conjunctiva pink, EOMI, PERRLA. ABSENT: scleral icterus Ear exam: PRESENT: normal external ear exam Mouth exam: PRESENT: moist, tongue midline Neck exam: ABSENT: carotid bruit, JVD, lymphadenopathy, thyromegaly Respiratory exam: PRESENT: clear to auscultation leo. ABSENT: rales, rhonchi, wheezes Cardiovascular exam: PRESENT: RRR. ABSENT: diastolic murmur, rubs, systolic murmur Pulses: PRESENT: normal dorsalis pedis pul GI/Abdominal exam: PRESENT: normal bowel sounds, soft. ABSENT: distended, guarding, mass, organolmegaly, rebound, tenderness Rectal exam: PRESENT: deferred Neurological exam: PRESENT: alert, awake, oriented to person, oriented to place, oriented to situation Results Laboratory Results: 05/31/19 04:28 05/30/19 04:54 05/30/19 05/31/19 10:25 04:28 WBC 9.9 D RBC 3.90 L Hgb 11.5 L D Hct 35.1 L MCV 90 D MCH 29.4 MCHC 32.7 RDW 21.0 H Plt Count 125 L Seg Neutrophils % 84.2 H Lymphocytes % 7.3 L Monocytes % 6.9 Eosinophils % 1.4 Basophils % 0.2 Absolute Neutrophils 8.4 H Absolute Lymphocytes 0.7 Absolute Monocytes 0.7 Absolute Eosinophils 0.1 Absolute Basophils 0.0 Blood Type O NEGATIVE Antibody Screen NEGATIVE Impressions: Head CT 05/26/19 19:17 IMPRESSION: 1. Involutional changes with chronic microvascular ischemia. 2. Surgical changes in the right frontal lobe. The overall appearance of this area is improved. 3. Possible large posterior fossa arachnoid cyst. EVIDENCE OF ACUTE STROKE: NO. Abdomen/Pelvis CT 05/27/19 08:59 IMPRESSION: SMALL PLEURAL EFFUSIONS. NO OTHER SIGNIFICANT OR ACUTE PROCESS IN THE ABDOMEN OR PELVIS. Chest X-Ray 05/29/19 00:00 IMPRESSION: NO ACUTE FINDINGS. Qualifiers - * PATIENT BEING DISCHARGED WITH ANY OF THE FOLLOWING DIAGNOSIS: No Acute Heart Failure - Is this a Heart Failure Patient?: No LVEF < 40%?: No- if no continue to question #3 3. Anticoagulant therapy for permanect/persistent/paraoxysmal Afib or Aflutter: N/A
[2019-05-31 16:43] VITALS: BP 132/76
== END 2019-05-31 18:19 | DRG 640 ==
LOC: ER 16:33 → EH 21:34 → 4S 22:24 → OBSVTOIN 05-28 14:37
PROVIDERS: ADMIT Family Medicine; ATTEND Family Medicine
PROC: 30233N1 Transfusion of Nonautologous Red Blood Cells into Peripheral Vein, Percutaneous Approach (ICD-10-PCS; principal; 2019-05-30)
DX: E87.6 Hypokalemia (principal); D61.810 Antineoplastic chemotherapy induced pancytopenia; C71.1 Malignant neoplasm of frontal lobe; K52.1 Toxic gastroenteritis and colitis; E83.51 Hypocalcemia; I10 Essential (primary) hypertension; T45.1X5A Adverse effect of antineoplastic and immunosuppressive drugs, initial encounter; E78.5 Hyperlipidemia, unspecified; D63.0 Anemia in neoplastic disease; Z79.899 Other long term (current) drug therapy; Z98.890 Other specified postprocedural states; Z86.718 Personal history of other venous thrombosis and embolism; Z87.891 Personal history of nicotine dependence; Z88.0 Allergy status to penicillin; E87.1 Hypo-osmolality and hyponatremia; E86.0 Dehydration
CPT/HCPCS: 36415; 36430; 70450; 71045; 74176; 80048; 80053; 82272; 82533; 82607; 82728; 82746; 83036; 83540; 83550; 83605; 83735; 84132; 84443; 85025; 85045; 86850; 86900; 86901; 86920; 87045; 87205; 87493; 89055; 93005; 93010; 96360; 99285; G0378; J0610; J1200; J1439; J1650; J3480; J3490; J7030; J7050; J7120; P9016

== ENCOUNTER 2019-06-18 23:09 | Emergency (ER) | payer BC ==
[2019-06-18] MEDS ORDERED: NORMAL SALINE 1000 ML 1,000 ML IV ONE (23:37)
[2019-06-19 00:19] LABS: ABSOLUTE BASOPHILS # (AUTO) 0.1 10^3/uL (0.0-0.2); ABSOLUTE LYMPHOCYTES (AUTO) 1.8 10^3/uL (0.5-4.7); ABSOLUTE MONOCYTES (AUTO) 1.8 10^3/uL (0.1-1.4); ABSOLUTE NEUT (AUTO) 7.8 10^3/uL (1.7-8.2); BASOPHILS % (AUTO) 1.1 % (0-2); EOSINOPHILS % (AUTO) 0.3 % (0-6); HEMATOCRIT 40.2 % (37.9-51.0); LYMPHOCYTES % (AUTO) 15.1 % (13-45); MEAN CORPUSCULAR HEMOGLOBIN 30.2 pg (27.0-33.4); MEAN CORPUSCULAR HGB CONC 32.4 g/dL (32.0-36.0); MEAN CORPUSCULAR VOLUME 93 fl (80-97); MONOCYTES % (AUTO) 15.9 % (3-13); PLATELET COUNT 213 10^3/uL (150-450); RED CELL DISTRIBUTION WIDTH 23.9 % (11.5-14.0); SEGMENTED NEUTROPHILS % (AUTO) 67.6 % (42-78); TOTAL CELLS COUNTED % (AUTO) 100 %; WHITE BLOOD COUNT 11.6 10^3/uL (4.0-10.5)
--- NOTE | 2019-06-19 00:38 | RADIOLOGY REPORT (SQ) ---
EXAM DESCRIPTION: X-ray single view chest. CLINICAL HISTORY: 63 years Male, cough COMPARISON: 05/29/2019 TECHNIQUE: Single portable x-ray view of the chest performed on 06/19/2019 at 12:17 AM FINDINGS: The lungs are well expanded and are clear. There is no evidence of a pneumothorax. The cardiac silhouette is normal in size and configuration. The mediastinal contours are normal. No acute osseous abnormality is identified. No focal soft tissue abnormalities are seen. Lines and tubes: None. IMPRESSION: No evidence of acute intrathoracic disease. No significant change when compared to the prior study.
--- NOTE | 2019-06-19 00:45 | ER Document Report ---
ED General - General Chief Complaint: Doesn't Feel Right Stated Complaint: FAILURE TO THRIVE Primary Care Provider: PAULO SUMMERS MD [Primary Care Provider] - Follow up as needed Information source: Relative - Cannot obtain history due to: Other - brain tumor TRAVEL OUTSIDE OF THE [place] IN LAST 30 DAYS: No - HPI Onset: Yesterday Associated symptoms: None Notes: he is unable to answer due to condition - Related Data Allergies/Adverse Reactions: Penicillins Allergy (Unknown, Verified 05/26/19 16:36) Blisters Past Medical History - General Cannot obtain history due to: Other - brain ca - Social History Smoking Status: Unknown if Ever Smoked Family History: Reviewed & Not Pertinent, Malignancy Patient has suicidal ideation: No Patient has homicidal ideation: No - Past Medical History Cardiac Medical History: Reports: Hx DVT, Hx Hypercholesterolemia, Hx Hypertension Renal/ Medical History: Denies: Hx Peritoneal Dialysis Malignancy Medical History: Reports Hx Brain Cancer GI Medical History: Reports: Hx Gastroesophageal Reflux Disease Past Surgical History: Reports: Hx Herniorrhaphy, Hx Neurologic Surgery - brain surgery (removed 6 cm tumor) in January 2017, Other - craniotomyComment Only: Hx Abdominal Surgery - hernia surgery - Immunizations Hx Diphtheria, Pertussis, Tetanus Vaccination: Yes Review of Systems - Review of Systems -: Yes ROS unobtainable due to patient's medical condition Physical Exam - Vital signs Vitals: Resp 26 H 06/18/19 23:24 Notes: PHYSICAL EXAMINATION: GENERAL: Cachectic appearing individual immune negative with scars on head from brain surgery HEAD: Atraumatic, . EYES: Pupils equal round and reactive to light, extraocular movements intact, sclera anicteric, conjunctiva are normal. ENT: nares patent, oropharynx clear without exudates. Dry mucous membranes NECK: Normal range of motion, supple without lymphadenopathy LUNGS: Breath sounds clear to auscultation bilaterally and equal. No wheezes rales or rhonchi. HEART: Regular rate and rhythm without murmurs ABDOMEN: Soft, nontender, normoactive bowel sounds. No guarding, no rebound. No masses appreciated. EXTREMITIES: Normal range of motion, no pitting or edema. No cyanosis. NEUROLOGICAL: No focal neurological deficits. Moves all extremities spontaneously and on command. PSYCH: Normal mood, normal affect. SKIN: Warm, Dry, normal turgor, no rashes or lesions noted. Course - Vital Signs Vital signs: Temp Pulse Resp BP Pulse Ox 95.2 F L 21 H 152/110 H 96 06/19/19 01:10 06/19/19 01:01 06/19/19 01:00 06/19/19 01:01 - Laboratory Result Diagrams: 06/18/19 23:58 06/19/19 00:35 Laboratory results interpreted by me: 06/18/19 06/19/19 06/19/19 23:58 00:35 01:13 WBC 11.6 H RBC 4.30 L Hgb 13.0 L RDW 23.9 H [place] % (Auto) 15.9 H Absolute Monos (auto) 1.8 H Sodium 132.9 L Alkaline Phosphatase 133 H Total Protein 4.9 L Albumin 2.7 L Urine Protein 100 H Urine Ketones TRACE H Urine Blood LARGE H Urine Nitrite POSITIVE H Urine Urobilinogen 2.0 H Ur Leukocyte Esterase MODERATE H - Diagnostic Test Radiology reviewed: Image reviewed, Reports reviewed - EKG Interpretation by Me Rate: Tachycardia Rhythm: No: NSR, SVT, Arrthymia, A.Fib, A.Flutter, with a 2:1 Block, V.Tach, Torsades, V. Fib, MAT, PVC's, APC's, Other Central/QRS: RBBB, LAHB/LAFB. No: Right axis deviation, Left axis deviation, LBBB, IVCD, LPHB/LPFB, Bifasicular block When compared to previous EKG there are: No significant change - Transfer of Care Notes: 06/19/19 01:45 Note patient appears better after his IV fluids I discussed his labs with his including the urinary tract infection. I believe he can be discharged we will send a urine culture give him IV Levaquin here and send him home with the same. He should return if any worse Discharge - Discharge Clinical Impression: UTI (urinary tract infection) Qualifiers: Urinary tract infection type: acute cystitis Hematuria presence: without hematuria Qualified Code(s): N30.00 - Acute cystitis without hematuria Condition: Good Disposition: HOME, SELF-CARE Instructions: Urinary Tract Infection ([facility]) Additional Instructions: Medication as directed follow-up with your regular doctor to check the cultures. Return if worse Prescriptions: Levofloxacin [Levaquin] 500 mg PO DAILY #7 tablet Referrals: PAULO SUMMERS MD [Primary Care Provider] - Follow up as needed
[2019-06-19 01:05] LABS: ALBUMIN 2.7 g/dL (3.5-5.0); ALKALINE PHOSPHATASE 133 U/L (38-126); ANION GAP 6 (5-19); ASPARTATE AMINO TRANSFERASE 43 U/L (17-59); BILIRUBIN,DIRECT 0.2 mg/dL (0.0-0.4); BILIRUBIN,TOTAL 1.3 mg/dL (0.2-1.3); BLOOD UREA NITROGEN 12 mg/dL (7-20); CALCIUM 8.4 mg/dL (8.4-10.2); CARBON DIOXIDE 29 mmol/L (22-30); CHLORIDE 98 mmol/L (98-107); GLUCOSE 103 mg/dL (75-110); POTASSIUM 4.5 mmol/L (3.6-5.0); TOTAL PROTEIN 4.9 g/dL (6.3-8.2)
[2019-06-19 01:31] LABS: APPEARANCE,URINE TURBID; BILIRUBIN,URINE NEGATIVE (NEGATIVE); COLOR,URINE YELLOW; GLUCOSE, URINE NEGATIVE (NEGATIVE); KETONES,URINE TRACE mg/dL (NEGATIVE); LEUKOCYTE ESTERASE,URINE MODERATE (NEGATIVE); NITRITE,URINE POSITIVE (NEGATIVE); PROTEIN,URINE 100 mg/dL (NEGATIVE); URINE SPECIFIC GRAVITY 1.017
[2019-06-19] MEDS ORDERED: LEVOFLOXACIN 750 MG/D5W RTU 750 MG/150 ML RTUPB IV ONE (01:43)
[2019-06-19 03:40] VITALS: BP 133/87
--- NOTE | 2019-06-20 18:43 | EKG REPORT ---
SEVERITY:- ABNORMAL ECG - SINUS TACHYCARDIA RBBB AND LPFB : Confirmed by: Letty Saldana 20-Jun-2019 18:42:58
== END 2019-06-19 03:41 | disposition home or self-care (01) ==
LOC: ER 23:09
DX: R62.7 Adult failure to thrive (principal); Z88.0 Allergy status to penicillin; Z86.718 Personal history of other venous thrombosis and embolism; E78.00 Pure hypercholesterolemia, unspecified; I10 Essential (primary) hypertension
CPT/HCPCS: 93005; 99285; 96361; 51701; 96365; 96366; 36415; 87040; 87086; 85025; 87088; 80053; 81001; 84484; 87186; 83605; 71045; 93010; J7030; J1956